=== PATIENT | female | born 2000 | race African-American/Black ===

== ENCOUNTER 2019-12-26 12:52 | Inpatient (IN) ==
[~2019-12-26 12:52] MED LIST: SODIUM CHLORIDE 0.9% 1000ML 1,000 ML IV ONE
--- NOTE | 2019-12-26 12:58 | Emergency Department Note ---
Impression & Plan DKA (diabetic ketoacidoses), Acute metabolic encephalopathy, Nausea & vomiting ED Provider Note NAME: LIZA PECK AGE: 19 SEX: F : 2000 ARRIVES VIA: Ambulance INFORMANT: Patient, ED PROVIDER(S): Michael Nugent DO CHIEF COMPLAINT: Palpitations HPI: The patient is a 19-year-old female who has a history of insulin-dependent diabetes who normally has an insulin pump who presented to the emergency department today because of tachycardia. The patient states she started feeling ill last evening. She started noticing having difficulty breathing and felt as though her heart rate was racing. Additional history was obtained from the prehospital personnel. They state when they arrived at our facility she was found to be in a narrow complex tachycardia at approximately 170 bpm. The patient was prepped to have adenosine however prior to administration the patient went to a sinus tachycardia of approximately 140 bpm. The patient noted her insulin pump was not working it was disconnected. The patient at this time is denying any chest pain. She is denying any nausea or vomiting. She is had no recent illnesses. She does not have any cough or fever. She states that she has never had symptoms like this in the past. She does have a history of pulmonary stenosis as well. ROS: See above HPI for pertinent positives & negatives. A total of 10 systems reviewed and were otherwise negative. PAST MEDICAL HISTORY: See Below PAST SURGICAL HISTORY: See Below FAMILY HISTORY: See Below SOCIAL HISTORY: See Below HOME MEDICATIONS: See Below ALLERGIES: See Below VITALS: See Below PHYSICAL EXAMINATION: GENERAL: Patient is listless and slow to respond to questioning. She does follow commands appropriately but slowly. EYES: The conjunctivae are clear. The pupils are round and reactive. EARS, NOSE, MOUTH AND THROAT: The nose is without any evidence of any deformity. Mucous membranes are dry. NECK: The neck is nontender and supple. RESPIRATORY: Shallow respirations were noted. There were no rales rhonchi or wheezing. There is significant tachypnea and conversational dyspnea. CARDIOVASCULAR: Tachycardic rate with regular rhythm was noted. There was no definite murmur appreciated however it is difficult given the patient's tachycardic rate. The patient was reevaluated when her heart rate was improved. She does have a systolic murmur to auscultation. GASTROINTESTINAL: The abdomen is soft. Abdomen is nontender. MUSCULOSKELETAL/EXTREMITIES: There is no evidence of gross deformity full range of motion is noted in the hips and shoulders. SKIN: There is no obvious evidence of any rash. Skin was warm and dry. NEUROLOGIC: Patient is oriented to person place and situation. Strength is symmetric. The patient's mental status does wax and wane. She started asking questions that were nonsensical. She does follow commands slowly. MEDICAL DECISION MAKING: The patient is a 19-year-old female who presented to the emergency department for an evaluation of tachycardia palpitations nausea and vomiting. The patient is a history of insulin-dependent diabetes. Is appears that her insulin pump was malfunctioning. Family history was also obtained by the patient's mother as well as the prehospital personnel. The patient was obtunded at times. Apparently she was having some nausea and vomiting over the last few days and thought it may be due to food poisoning. The patient's abdominal exam was not consistent with an acute surgical abdomen. The patient was found to be in severe DKA and also had an elevated white blood cell count. She was treated with IV fluids and IV insulin. She was also treated with IV antibiotics for empiric coverage. I discussed the patient's laboratory and radiographic studies with her and her mother. I also discussed her case with the on-call [facility] hospitalist group. They have agreed to evaluate the patient in the emergency department for further management and disposition. Triage Nursing notes reviewed. Prior medical records reviewed Vital Signs: reviewed and remarkable for tachycardia and tachypnea. Differential diagnosis: Infection, hypoglycemia, electrolyte abnormalities, overdose, toxicologic, cardiac sources, intracerebral event, neurologic, trauma, as well as other path ologies. ER treatment provided: See below Diagnostics interpreted by me: ECG: EKG was obtained in the emergency department. My interpretation is sinus tachycardia at 107 bpm. There was no ectopy. There was no acute ST segment abnormalities noted. Poor baseline was noted. There is no previous tracing for comparison. Cardiac Monitoring: An order was placed for continuous cardiac monitoring. The monitor shows a rate of 120 with sinus tachycardia rhythm. Laboratory studies: As stated above and show below. Imaging studies: See below Consultation(s): 1440: I discussed this case with Jenny. She is agreed to evaluate the patient in the emergency department for further management and disposition. 1500: I discussed the patient's condition with her mother, Beto, she does give some of the back story on the patient's acute condition. The patient was texting her over the last 24 hours. She was concerned that she may have gotten food poisoning from eating chicken. She was the only person who ate the food that was affected. She is been having nausea and vomiting. She was also concerned that her insulin pump was not working yesterday. The patient has had no previous surgical history. She does have a history of a stent that was placed because of a pulmonary stenosis. Her mother is unsure of the exact name of the procedure. ED COURSE: Procedures: Lumbar Puncture Indication: Altered mental status and elevated white blood cell count. Verbal consent was obtained after the risks and benefits were explained, including but not limited to headache, bleeding/clotting, scarring, infection, pain, and bone/joint/nerve damage. At this time, the risks of the procedure are less than the risks of NOT performing the procedure. A time out was taken and the correct patient and site identified. The patient was placed in the seated position and the back was prepped with betadine and draped in the standard fashion. The L3 intervertebral space was identified, anesthetized locally with 1% lidocaine without epinephrine, and the spinal needle was inserted through the skin with the bevel parallel to the dural fibers. The needle was carefully advanced into the lumbar cistern and 4 tubes of clear CSF was obtained. The stylet was replaced and the needle was removed. A bandaid was placed and the pat ient was placed in the supine position. The patient tolerated the procedure well and there were no complications. Critical Care: I have personally spent greater than 55 minutes of critical care time in the direct management of this patient. This includes bedside care, interpretation of diagnostic studies, and testing, discussion with consultants, patient, and family members, and other required patient management activities. This 55 minutes is in excess of all separately billable procedures. Past Med/Surg History Medical History (Updated 12/26/19 @ 17:43 by Jeb Ward DO) IDDM (insulin dependent diabetes mellitus) Pulmonary stenosis Social History Preferred Language: [place] Communication Ability: Unable Chiller Hand Required: No Beliefs That Will Affect Care: None Current Living Situation: Other Current Living Situation Comment: OFF CAMPUS APARTMENT WITH 2 ROOMMATES Feels Safe at Home: Yes Smoking Status: Never smoker Second Hand Exposure: No ; Hx Alcohol Use: No Hx Substance Use: No Allergies Allergies Allergy/AdvReac Type Severity Reaction Status Date / Time cefuroxime [From Ceftin] Allergy Intermediate Hives Unverified 12/26/19 16:47 pineapple Allergy Intermediate Lip and Unverified 12/26/19 16:47 Tongue Swelling Home Meds Home Medications Medication Instructions Recorded Confirmed aspirin 81 mg PO QAM 12/26/19 12/26/19 epinephrine 0.3 mg SUBCUT UD 12/26/19 12/26/19 insulin lispro [Humalog U-100 100 unit CONTINUOUS SUBCUTANEOUS 12/26/19 12/26/19 Insulin] INFUSION DAILY Results & Data (ED) Vital Signs Vital Signs - 24 hr 12/26/19 13:05 12/26/19 13:12 12/26/19 13:24 Temperature 36.5 C Temperature Source Oral Pulse Rate 108 H 106 H Pulse Rate [Apical] Pulse Rate from SpO2 Sensor 104 H Respiratory Rate 40 H 36 H Respiratory Effort / Characteristics Labored Short of Breath Respiratory Pattern Tachypnea Blood Pressure 126/83 128/80 Blood Pressure [Left Arm] Blood Pressure Mean 97 96 Blood Pressure Mean [Left Arm] Pulse Oximetry 100 100 100 Oxygen Delivery Method Room Air Nasal Cannula Oxygen Flow Rate 2 Sepsis Recent Fever Within 48 Hours No Sepsis New/Unexplained Change in Mental Status No Sepsis Action Taken by Nursing No Action Required 12/26/19 13:30 12/26/19 13:36 12/26/19 14:07 Temperature Temperature Source Pulse Rate 105 H 104 H Pulse Rate [Apical] 105 H Pulse Rate from SpO2 Sensor 105 H 104 H Respiratory Rate 34 H 38 H 37 H Respiratory Effort / Characteristics Respiratory Pattern Blood Pressure 102/82 124/82 Blood Pressure [Left Arm] 102/82 Blood Pressure Mean 87 96 Blood Pressure Mean [Left Arm] 88 Pulse Oximetry 100 100 100 Oxygen Delivery Method Nasal Cannula Nasal Cannula Oxygen Flow Rate 2 Sepsis Recent Fever Within 48 Hours Sepsis New/Unexplained Change in Mental Status Sepsis Action Taken by Nursing 12/26/19 14:15 12/26/19 14:38 12/26/19 14:45 Temperature Temperature Source Pulse Rate 102 H 102 H 105 H Pulse Rate [Apical] Pulse Rate from SpO2 Sensor 102 H 102 H 105 H Respiratory Rate 36 H 28 H 27 H Respiratory Effort / Characteristics Respiratory Pattern Blood Pressure 119/88 126/80 117/74 Blood Pressure [Left Arm] Blood Pressure Mean 92 110 80 Blood Pressure Mean [Left Arm] Pulse Oximetry 100 100 100 Oxygen Delivery Method Nasal Cannula Nasal Cannula Nasal Cannula Oxygen Flow Rate 2 2 2 Sepsis Recent Fever Within 48 Hours Sepsis New/Unexplained Change in Mental Status Sepsis Action Taken by Nursing 12/26/19 15:00 12/26/19 15:15 12/26/19 15:30 Temperature Temperature Source Pulse Rate 102 H 102 H 105 H Pulse Rate [Apical] Pulse Rate from SpO2 Sensor 102 H 102 H Respiratory Rate 29 H 28 H 30 H Respiratory Effort / Characteristics Respiratory Pattern Blood Pressure 143/88 H 125/81 122/79 Blood Pressure [Left Arm] Blood Pressure Mean 105 105 82 Blood Pressure Mean [Left Arm] Pulse Oximetry 100 100 Oxygen Delivery Method Nasal Cannula Nasal Cannula Oxygen Flow Rate 2 2 2 Sepsis Recent Fever Within 48 Hours Sepsis New/Unexplained Change in Mental Status Sepsis Action Taken by Detention Medications Current Medication List: was personally reviewed by me Laboratory Data Attestation: I reviewed the patient's lab results. Result diagrams: 12/26/19 13:48 12/26/19 15:58 Lab Results 12/26/19 12/26/19 12/26/19 Range/Units 13:30 13:30 13:48 WBC 43.19 H* (4.8-10.8) K/uL RBC 4.72 (4.2-5.4) M/uL Hgb 12.9 (12.0-16.0) g/dL POC Hgb (12.0-16.0) g/dl Hct 41.9 (37-47) % POC Hct (37-47) % MCV 88.8 (80-100) fL MCH 27.3 (25-34) pg MCHC 30.8 L (32-36) g/dL RDW Std Deviation 42.9 (36.4-46.3) fL RDW Coeff of Rylee 13.2 (11.5-14.5) % Plt Count 291 (130-400) K/uL MPV 10.2 (7.4-10.4) fL Immature Gran % (Auto) 4.9 % Neut % (Auto) 72.9 % Lymph % (Auto) 15.3 % Mchenry % (Auto) 6.4 % Eos % (Auto) 0.3 % Baso % (Auto) 0.2 % Immature Gran # (Auto) 2.13 H (0.00-0.02) K/uL Neut # (Auto) 31.50 H (1.4-6.5) K/uL Lymph # (Auto) 6.60 H (1.2-3.4) K/uL Mchenry # (Auto) 2.77 H (0.11-0.59) K/uL Eos # (Auto) 0.11 (0-0.5) K/uL Baso # (Auto) 0.08 (0-0.2) K/uL Platelet Estimate Normal (Normal) PT (9.0-12.0) Seconds INR (0.9-1.1) APTT (21.0-31.0) Seconds PTT Ratio VBG pH (7.36-7.41) VBG pCO2 (38-50) mmHg VBG pO2 mmHg VBG HCO3 mmol/L VBG O2 Saturation % VBG Base Excess mEq/L Barometric Pressure mm/Hg POC Sodium (135-144) mmol/L Sodium (136-145) mmol/L POC Potassium (3.3-5.0) mmol/L Potassium (3.5-5.1) mmol/L POC Chloride (101-112) mmol/L Chloride (98-107) mmol/L Carbon Dioxide (21-32) mmol/L POC Total CO2 (24-31) mmol/L Anion Gap (3-11) POC Anion Gap (16-25) mmol/L POC BUN (7-18) mg/dl BUN (7-18) mg/dl Creatinine (0.6-1.2) mg/dl POC Creatinine mg/dl Est Cr Clr Drug Dosing ml/min Est GFR ( Amer) Est GFR (Non-Af Amer) BUN/Creatinine Ratio (10-20) Glucose (70-99) mg/dl POC Glucose (70-99) mg/dl POC Glucose (other) (70-99) mg/dl Lactate (0.4-2.0) mmol/L Calcium (8.5-10.1) mg/dl POC Ioniz Calcium Felipe mmol/l Phosphorus (2.5-4.9) mg/dl Magnesium (1.8-2.4) mg/dl Total Bilirubin (0.2-1) mg/dl AST (15-37) U/L ALT (12-78) U/L Alkaline Phosphatase (45-117) U/L Troponin I (0-0.045) ng/ml Total Protein (6.4-8.2) gm/dl Albumin (3.4-5.0) gm/dl Globulin (2.5-4.0) gm/dl Albumin/Globulin Ratio (0.9-2) Beta-Hydroxybutyric Acd TSH (0.300-4.500) uIu/ml Free T4 (0.8-1.6) ng/dl HCG, Qual (Negative) Specimen Hemolysis Urine Color Yellow Urine Appearance Clear (Clear) Urine pH 5.0 (4.5-7.5) Ur Specific [place] [facility] 1.025 (1.000-1.030) Urine Protein 1+ H (Negative) Urine Glucose (UA) 3+ H (Negative) Urine Ketones 4+ H (Negative) Urine Blood 1+ H (Negative) Urine Nitrite Negative (Negative) Urine Bilirubin Negative (Negative) Urine Urobilinogen Negative (Negative) Ur Leukocyte Esterase Negative (Negative) Urine WBC (Auto) 1-5 (0-5) /hpf Urine RBC (Auto) 0-4 (0-4) /hpf U Hyaline Cast (Auto) 1-5 (0-5) /lpf U Epithel Cells (Auto) >30 H (0-5) /lpf Urine Bacteria (Auto) Negative (Negative) Granular Casts 1-5 H (0) /lpf Urine Yeast Not Reportable CSF Appearance CSF Color Xanthrochromic CSF WBC (0-5) /uL CSF RBC (0-) /uL CSF Cell Count Tube # CSF Chemistry Tube # CSF Glucose (40-70) mg/dl CSF Total Protein (15-45) mg/dl Urine Opiates Screen Neg (Neg) Ur Methadone, Qual Neg (Neg) Urine Barbiturates Neg (Neg) Ur Phencyclidine (PCP) Neg (Neg) U Amphetamin/Meth Scrn Neg (Neg) MDMA (Ecstasy) Screen Neg (Neg) U Benzodiazepines Scrn Neg (Neg) Ur Cocaine Metabolite Neg (Neg) U Marijuana (THC) Screen Neg (Neg) 12/26/19 12/26/19 12/26/19 Range/Units 13:48 13:48 13:48 WBC (4.8-10.8) K/uL RBC (4.2-5.4) M/uL Hgb (12.0-16.0) g/dL POC Hgb (12.0-16.0) g/dl Hct (37-47) % POC Hct (37-47) % MCV (80-100) fL MCH (25-34) pg MCHC (32-36) g/dL RDW Std Deviation (36.4-46.3) fL RDW Coeff of Rylee (11.5-14.5) % Plt Count (130-400) K/uL MPV (7.4-10.4) fL Immature Gran % (Auto) % Neut % (Auto) % Lymph % (Auto) % Mchenry % (Auto) % Eos % (Auto) % Baso % (Auto) % Immature Gran # (Auto) (0.00-0.02) K/uL Neut # (Auto) (1.4-6.5) K/uL Lymph # (Auto) (1.2-3.4) K/uL Mchenry # (Auto) (0.11-0.59) K/uL Eos # (Auto) (0-0.5) K/uL Baso # (Auto) (0-0.2) K/uL Platelet Estimate (Normal) PT 10.8 (9.0-12.0) Seconds INR 1.0 (0.9-1.1) APTT 30.0 (21.0-31.0) Seconds PTT Ratio 1.1 VBG pH (7.36-7.41) VBG pCO2 (38-50) mmHg VBG pO2 mmHg VBG HCO3 mmol/L VBG O2 Saturation % VBG Base Excess mEq/L Barometric Pressure mm/Hg POC Sodium (135-144) mmol/L Sodium 133 L (136-145) mmol/L POC Potassium (3.3-5.0) mmol/L Potassium 5.4 H (3.5-5.1) mmol/L POC Chloride (101-112) mmol/L Chloride 104 (98-107) mmol/L Carbon Dioxide < 5 L* (21-32) mmol/L POC Total CO2 (24-31) mmol/L Anion Gap 29.0 H (3-11) POC Anion Gap (16-25) mmol/L POC BUN (7-18) mg/dl BUN 30 H (7-18) mg/dl Creatinine 1.76 H (0.6-1.2) mg/dl POC Creatinine mg/dl Est Cr Clr Drug Dosing 41.0 ml/min Est GFR ( Amer) 47.4 Est GFR (Non-Af Amer) 40.9 BUN/Creatinine Ratio 16.9 (10-20) Glucose 790 H* (70-99) mg/dl POC Glucose (70-99) mg/dl POC Glucose (other) (70-99) mg/dl Lactate 2.7 H* (0.4-2.0) mmol/L Calcium 8.3 L (8.5-10.1) mg/dl POC Ioniz Calcium Felipe mmol/l Phosphorus (2.5-4.9) mg/dl Magnesium 2.8 H (1.8-2.4) mg/dl Total Bilirubin 0.3 (0.2-1) mg/dl AST 34 (15-37) U/L ALT 25 (12-78) U/L Alkaline Phosphatase 157 H (45-117) U/L Troponin I 0.022 (0-0.045) ng/ml Total Protein 7.1 (6.4-8.2) gm/dl Albumin 3.1 L (3.4-5.0) gm/dl Globulin 4.0 (2.5-4.0) gm/dl Albumin/Globulin Ratio 0.8 L (0.9-2) Beta-Hydroxybutyric Acd TNP TSH 0.192 L (0.300-4.500) uIu/ml Free T4 1.08 (0.8-1.6) ng/dl HCG, Qual (Negative) Specimen Hemolysis Urine Color Urine Appearance (Clear) Urine pH (4.5-7.5) Ur Specific [place] [facility] (1.000-1.030) Urine Protein (Negative) Urine Glucose (UA) (Negative) Urine Ketones (Negative) Urine Blood (Negative) Urine Nitrite (Negative) Urine Bilirubin (Negative) Urine Urobilinogen (Negative) Ur Leukocyte Esterase (Negative) Urine WBC (Auto) (0-5) /hpf Urine RBC (Auto) (0-4) /hpf U Hyaline Cast (Auto) (0-5) /lpf U Epithel Cells (Auto) (0-5) /lpf Urine Bacteria (Auto) (Negative) Granular Casts (0) /lpf Urine Yeast CSF Appearance CSF Color Xanthrochromic CSF WBC (0-5) /uL CSF RBC (0-) /uL CSF Cell Count Tube # CSF Chemistry Tube # CSF Glucose (40-70) mg/dl CSF Total Protein (15-45) mg/dl Urine Opiates Screen (Neg) Ur Methadone, Qual (Neg) Urine Barbiturates (Neg) Ur Phencyclidine (PCP) (Neg) U Amphetamin/Meth Scrn (Neg) MDMA (Ecstasy) Screen (Neg) U Benzodiazepines Scrn (Neg) Ur Cocaine Metabolite (Neg) U Marijuana (THC) Screen (Neg) 12/26/19 12/26/19 12/26/19 Range/Units 13:48 13:48 13:48 WBC (4.8-10.8) K/uL RBC (4.2-5.4) M/uL Hgb (12.0-16.0) g/dL POC Hgb (12.0-16.0) g/dl Hct (37-47) % POC Hct (37-47) % MCV (80-100) fL MCH (25-34) pg MCHC (32-36) g/dL RDW Std Deviation (36.4-46.3) fL RDW Coeff of Rylee (11.5-14.5) % Plt Count (130-400) K/uL MPV (7.4-10.4) fL Immature Gran % (Auto) % Neut % (Auto) % Lymph % (Auto) % Mchenry % (Auto) % Eos % (Auto) % Baso % (Auto) % Immature Gran # (Auto) (0.00-0.02) K/uL Neut # (Auto) (1.4-6.5) K/uL Lymph # (Auto) (1.2-3.4) K/uL Mchenry # (Auto) (0.11-0.59) K/uL Eos # (Auto) (0-0.5) K/uL Baso # (Auto) (0-0.2) K/uL Platelet Estimate (Normal) PT (9.0-12.0) Seconds INR (0.9-1.1) APTT (21.0-31.0) Seconds PTT Ratio VBG pH 6.88 L (7.36-7.41) VBG pCO2 34 L (38-50) mmHg VBG pO2 38 mmHg VBG HCO3 6 mmol/L VBG O2 Saturation 61.9 % VBG Base Excess -26.4 mEq/L Barometric Pressure 739.2 mm/Hg POC Sodium (135-144) mmol/L Sodium (136-145) mmol/L POC Potassium (3.3-5.0) mmol/L Potassium (3.5-5.1) mmol/L POC Chloride (101-112) mmol/L Chloride (98-107) mmol/L Carbon Dioxide (21-32) mmol/L POC Total CO2 (24-31) mmol/L Anion Gap (3-11) POC Anion Gap (16-25) mmol/L POC BUN (7-18) mg/dl BUN (7-18) mg/dl Creatinine (0.6-1.2) mg/dl POC Creatinine mg/dl Est Cr Clr Drug Dosing ml/min Est GFR ( Amer) Est GFR (Non-Af Amer) BUN/Creatinine Ratio (10-20) Glucose (70-99) mg/dl POC Glucose (70-99) mg/dl POC Glucose (other) (70-99) mg/dl Lactate (0.4-2.0) mmol/L Calcium (8.5-10.1) mg/dl POC Ioniz Calcium Felipe mmol/l Phosphorus 6.6 H (2.5-4.9) mg/dl Magnesium (1.8-2.4) mg/dl Total Bilirubin (0.2-1) mg/dl AST (15-37) U/L ALT (12-78) U/L Alkaline Phosphatase (45-117) U/L Troponin I (0-0.045) ng/ml Total Protein (6.4-8.2) gm/dl Albumin (3.4-5.0) gm/dl Globulin (2.5-4.0) gm/dl Albumin/Globulin Ratio (0.9-2) Beta-Hydroxybutyric Acd TSH (0.300-4.500) uIu/ml Free T4 (0.8-1.6) ng/dl HCG, Qual Negative (Negative) Specimen Hemolysis Urine Color Urine Appearance (Clear) Urine pH (4.5-7.5) Ur Specific [place] [facility] (1.000-1.030) Urine Protein (Negative) Urine Glucose (UA) (Negative) Urine Ketones (Negative) Urine Blood (Negative) Urine Nitrite (Negative) Urine Bilirubin (Negative) Urine Urobilinogen (Negative) Ur Leukocyte Esterase (Negative) Urine WBC (Auto) (0-5) /hpf Urine RBC (Auto) (0-4) /hpf U Hyaline Cast (Auto) (0-5) /lpf U Epithel Cells (Auto) (0-5) /lpf Urine Bacteria (Auto) (Negative) Granular Casts (0) /lpf Urine Yeast CSF Appearance CSF Color Xanthrochromic CSF WBC (0-5) /uL CSF RBC (0-) /uL CSF Cell Count Tube # CSF Chemistry Tube # CSF Glucose (40-70) mg/dl CSF Total Protein (15-45) mg/dl Urine Opiates Screen (Neg) Ur Methadone, Qual (Neg) Urine Barbiturates (Neg) Ur Phencyclidine (PCP) (Neg) U Amphetamin/Meth Scrn (Neg) MDMA (Ecstasy) Screen (Neg) U Benzodiazepines Scrn (Neg) Ur Cocaine Metabolite (Neg) U Marijuana (THC) Screen (Neg) 12/26/19 12/26/19 12/26/19 Range/Units 13:48 14:45 14:45 WBC (4.8-10.8) K/uL RBC (4.2-5.4) M/uL Hgb (12.0-16.0) g/dL POC Hgb 15.0 (12.0-16.0) g/dl Hct (37-47) % POC Hct 44 (37-47) % MCV (80-100) fL MCH (25-34) pg MCHC (32-36) g/dL RDW Std Deviation (36.4-46.3) fL RDW Coeff of Rylee (11.5-14.5) % Plt Count (130-400) K/uL MPV (7.4-10.4) fL Immature Gran % (Auto) % Neut % (Auto) % Lymph % (Auto) % Mchenry % (Auto) % Eos % (Auto) % Baso % (Auto) % Immature Gran # (Auto) (0.00-0.02) K/uL Neut # (Auto) (1.4-6.5) K/uL Lymph # (Auto) (1.2-3.4) K/uL Mchenry # (Auto) (0.11-0.59) K/uL Eos # (Auto) (0-0.5) K/uL Baso # (Auto) (0-0.2) K/uL Platelet Estimate (Normal) PT (9.0-12.0) Seconds INR (0.9-1.1) APTT (21.0-31.0) Seconds PTT Ratio VBG pH (7.36-7.41) VBG pCO2 (38-50) mmHg VBG pO2 mmHg VBG HCO3 mmol/L VBG O2 Saturation % VBG Base Excess mEq/L Barometric Pressure mm/Hg POC Sodium 133 L (135-144) mmol/L Sodium (136-145) mmol/L POC Potassium 5.5 H (3.3-5.0) mmol/L Potassium (3.5-5.1) mmol/L POC Chloride 110 (101-112) mmol/L Chloride (98-107) mmol/L Carbon Dioxide (21-32) mmol/L POC Total CO2 7 L* (24-31) mmol/L Anion Gap (3-11) POC Anion Gap 22.0 (16-25) mmol/L POC BUN 28 H (7-18) mg/dl BUN (7-18) mg/dl Creatinine (0.6-1.2) mg/dl POC Creatinine 1.1 mg/dl Est Cr Clr Drug Dosing ml/min Est GFR ( Amer) Est GFR (Non-Af Amer) BUN/Creatinine Ratio (10-20) Glucose (70-99) mg/dl POC Glucose (70-99) mg/dl POC Glucose (other) > 700 H* (70-99) mg/dl Lactate (0.4-2.0) mmol/L Calcium (8.5-10.1) mg/dl POC Ioniz Calcium Felipe 1.12 mmol/l Phosphorus (2.5-4.9) mg/dl Magnesium (1.8-2.4) mg/dl Total Bilirubin (0.2-1) mg/dl AST (15-37) U/L ALT (12-78) U/L Alkaline Phosphatase (45-117) U/L Troponin I (0-0.045) ng/ml Total Protein (6.4-8.2) gm/dl Albumin (3.4-5.0) gm/dl Globulin (2.5-4.0) gm/dl Albumin/Globulin Ratio (0.9-2) Beta-Hydroxybutyric Acd TSH (0.300-4.500) uIu/ml Free T4 (0.8-1.6) ng/dl HCG, Qual (Negative) Specimen Hemolysis Urine Color Urine Appearance (Clear) Urine pH (4.5-7.5) Ur Specific [facility] (1.000-1.030) Urine Protein (Negative) Urine Glucose (UA) (Negative) Urine Ketones (Negative) Urine Blood (Negative) Urine Nitrite (Negative) Urine Bilirubin (Negative) Urine Urobilinogen (Negative) Ur Leukocyte Esterase (Negative) Urine WBC (Auto) (0-5) /hpf Urine RBC (Auto) (0-4) /hpf U Hyaline Cast (Auto) (0-5) /lpf U Epithel Cells (Auto) (0-5) /lpf Urine Bacteria (Auto) (Negative) Granular Casts (0) /lpf Urine Yeast CSF Appearance Clear CSF Color Colorless Xanthrochromic No xanthochromia CSF WBC 0 (0-5) /uL CSF RBC 3 (0-) /uL CSF Cell Count Tube # 3 CSF Chemistry Tube # 1 CSF Glucose 496 H (40-70) mg/dl CSF Total Protein 49.9 H (15-45) mg/dl Urine Opiates Screen (Neg) Ur Methadone, Qual (Neg) Urine Barbiturates (Neg) Ur Phencyclidine (PCP) (Neg) U Amphetamin/Meth Scrn (Neg) MDMA (Ecstasy) Screen (Neg) U Benzodiazepines Scrn (Neg) Ur Cocaine Metabolite (Neg) U Marijuana (THC) Screen (Neg) 12/26/19 12/26/19 Range/Units 15:26 15:28 WBC (4.8-10.8) K/uL RBC (4.2-5.4) M/uL Hgb (12.0-16.0) g/dL POC Hgb (12.0-16.0) g/dl Hct (37-47) % POC Hct (37-47) % MCV (80-100) fL MCH (25-34) pg MCHC (32-36) g/dL RDW Std Deviation (36.4-46.3) fL RDW Coeff of Rylee (11.5-14.5) % Plt Count (130-400) K/uL MPV (7.4-10.4) fL Immature Gran % (Auto) % Neut % (Auto) % Lymph % (Auto) % Mchenry % (Auto) % Eos % (Auto) % Baso % (Auto) % Immature Gran # (Auto) (0.00-0.02) K/uL Neut # (Auto) (1.4-6.5) K/uL Lymph # (Auto) (1.2-3.4) K/uL Mchenry # (Auto) (0.11-0.59) K/uL Eos # (Auto) (0-0.5) K/uL Baso # (Auto) (0-0.2) K/uL Platelet Estimate (Normal) PT (9.0-12.0) Seconds INR (0.9-1.1) APTT (21.0-31.0) Seconds PTT Ratio VBG pH (7.36-7.41) VBG pCO2 (38-50) mmHg VBG pO2 mmHg VBG HCO3 mmol/L VBG O2 Saturation % VBG Base Excess mEq/L Barometric Pressure mm/Hg POC Sodium (135-144) mmol/L Sodium (136-145) mmol/L POC Potassium (3.3-5.0) mmol/L Potassium (3.5-5.1) mmol/L POC Chloride (101-112) mmol/L Chloride (98-107) mmol/L Carbon Dioxide (21-32) mmol/L POC Total CO2 (24-31) mmol/L Anion Gap (3-11) POC Anion Gap (16-25) mmol/L POC BUN (7-18) mg/dl BUN (7-18) mg/dl Creatinine (0.6-1.2) mg/dl POC Creatinine mg/dl Est Cr Clr Drug Dosing ml/min Est GFR ( Amer) Est GFR (Non-Af Amer) BUN/Creatinine Ratio (10-20) Glucose (70-99) mg/dl POC Glucose > 600 H* > 600 H* (70-99) mg/dl POC Glucose (other) (70-99) mg/dl Lactate (0.4-2.0) mmol/L Calcium (8.5-10.1) mg/dl POC Ioniz Calcium Felipe mmol/l Phosphorus (2.5-4.9) mg/dl Magnesium (1.8-2.4) mg/dl Total Bilirubin (0.2-1) mg/dl AST (15-37) U/L ALT (12-78) U/L Alkaline Phosphatase (45-117) U/L Troponin I (0-0.045) ng/ml Total Protein (6.4-8.2) gm/dl Albumin (3.4-5.0) gm/dl Globulin (2.5-4.0) gm/dl Albumin/Globulin Ratio (0.9-2) Beta-Hydroxybutyric Acd TSH (0.300-4.500) uIu/ml Free T4 (0.8-1.6) ng/dl HCG, Qual (Negative) Specimen Hemolysis Urine Color Urine Appearance (Clear) Urine pH (4.5-7.5) Ur Specific [place] (1.000-1.030) Urine Protein (Negative) Urine Glucose (UA) (Negative) Urine Ketones (Negative) Urine Blood (Negative) Urine Nitrite (Negative) Urine Bilirubin (Negative) Urine Urobilinogen (Negative) Ur Leukocyte Esterase (Negative) Urine WBC (Auto) (0-5) /hpf Urine RBC (Auto) (0-4) /hpf U Hyaline Cast (Auto) (0-5) /lpf U Epithel Cells (Auto) (0-5) /lpf Urine Bacteria (Auto) (Negative) Granular Casts (0) /lpf Urine Yeast CSF Appearance CSF Color Xanthrochromic CSF WBC (0-5) /uL CSF RBC (0-) /uL CSF Cell Count Tube # CSF Chemistry Tube # CSF Glucose (40-70) mg/dl CSF Total Protein (15-45) mg/dl Urine Opiates Screen (Neg) Ur Methadone, Qual (Neg) Urine Barbiturates (Neg) Ur Phencyclidine (PCP) (Neg) U Amphetamin/Meth Scrn (Neg) MDMA (Ecstasy) Screen (Neg) U Benzodiazepines Scrn (Neg) Ur Cocaine Metabolite (Neg) U Marijuana (THC) Screen (Neg) Administered Medications Insulin Human Regular 250 (units/ Sodium Chloride) 250 mls @ 3.2 mls/hr IV .Q24H [facility]; Protocol Stop: 01/25/20 13:59 Last Titration: 12/26/19 18:47 Dose: 3.2 units/hr, 3.2 mls/hr Documented by: [id number] Cosigned by: [id number] Admin: 12/26/19 17:51 Dose: 4 units/hr, 4 mls/hr Documented by: [id number] Cosigned by: [id number] Titration: 12/26/19 17:51 Dose: 5 units/hr, 5 mls/hr Documented by: [id number] Cosigned by: [id number] Admin: 12/26/19 14:15 Dose: 5 units/hr, 5 mls/hr Documented by: [id number] Cosigned by: [id number] Parenteral Electrolytes (Normosol-R) 1,000 mls @ 250 mls/hr IV .Q4H [facility] Stop: 01/25/20 15:39 Last Admin: 12/26/19 17:50 Dose: 250 mls/hr Documented by: [id number] Insulin Aspart (Novolog Flexpen) 0 units SC ACHS THADDEUS Stop: 01/25/20 16:29 Last Admin: 12/26/19 17:53 Dose: Not Given Documented by: [id number] Cosigned by: [id number] Discontinued Medications Benzocaine/Butamben/Tetracaine HCl (Cetacaine) Confirm Administered Dose 1 appln EXT .STK-MED ONE Stop: 12/26/19 17:02 Last Admin: 12/26/19 17:46 Dose: Not Given Documented by: [id number] Fentanyl Citrate (Fentanyl Citrate) 25 mcg IV NOW STA Stop: 12/26/19 13:57 Last Admin: 12/26/19 14:00 Dose: 25 mcg Documented by: [id number] Sodium Chloride (Nss 1000ml) 1,000 mls @ 999 mls/hr IV .Q1H1M ONE Stop: 12/26/19 13:52 Last Infusion: 12/26/19 14:19 Dose: 0 mls/hr Documented by: [id number] Admin: 12/26/19 13:19 Dose: 999 mls/hr Documented by: [id number] Sodium Chloride (Nss 1000ml) 1,000 mls @ 999 mls/hr IV .Q1H1M THADDEUS Stop: 12/26/19 14:00 Last Infusion: 12/26/19 14:19 Dose: 0 mls/hr Documented by: [id number] Admin: 12/26/19 13:19 Dose: 999 mls/hr Documented by: [id number] Sodium Chloride (Nss 1000ml) 1,000 mls @ 999 mls/hr IV .Q1H1M ONE Stop: 12/26/19 15:14 Last Infusion: 12/26/19 15:19 Dose: 0 mls/hr Documented by: [id number] Admin: 12/26/19 14:18 Dose: 999 mls/hr Documented by: [id number] Ceftriaxone Sodium (Rocephin) 2,000 mg in 70 mls @ 140 mls/hr IV NOW STA Stop: 12/26/19 14:53 Last Infusion: 12/26/19 17:54 Dose: 0 mls/hr Documented by: [id number] Admin: 12/26/19 15:20 Dose: 140 mls/hr Documented by: [id number] Potassium Chloride (K Dg / Wtr) 10 meq in 100 mls @ 100 mls/hr IV Q1H STA Stop: 12/26/19 16:39 Last Infusion: 12/26/19 17:54 Dose: 0 mls/hr Documented by: [id number] Admin: 12/26/19 16:13 Dose: 100 mls/hr Documented by: [id number] Insulin Aspart (Novolog Flexpen) 0 units SC ACHS THADDEUS Stop: 01/25/20 16:29 Last Admin: 12/26/19 17:52 Dose: Not Given Documented by: [id number] Cosigned by: [id number] Insulin Human Regular (Novolin R Bolus From Bag) 5 units IV ONE ONE Stop: 12/26/19 14:01 Last Admin: 12/26/19 14:16 Dose: 5 units Documented by: [id number] Cosigned by: [id number] Miscellaneous (Insulin Protocol Dka Goal Range) 1 ea N/A ONE ONE Stop: 12/26/19 13:54 Last Admin: 12/26/19 14:25 Dose: 1 ea Documented by: [id number] Ondansetron HCl (Zofran) 4 mg IV NOW STA Stop: 12/26/19 13:57 Last Admin: 12/26/19 14:00 Dose: 4 mg Documented by: [id number] Potassium Chloride (Anastasia Ciel Elix) 60 meq PO NOW STA Stop: 12/26/19 17:55 Last Admin: 12/26/19 18:45 Dose: 60 meq Documented by: [id number] Sodium Bicarbonate (Sodium Bicarbonate 8.4%) 50 meq IV NOW STA Stop: 12/26/19 15:41 Last Admin: 12/26/19 16:11 Dose: 50 meq Documented by: [id number] Imaging Data Radiologist's Impression: XR chest 1V portable CLINICAL HISTORY: 19 years-old Female presenting with weakness. TECHNIQUE: Portable upright AP view of the chest was obtained. COMPARISON: None. FINDINGS: Cardiomediastinal silhouette normal. Mild prominence of the right hilum. No focal opacity. No large effusion or pneumothorax. Osseous structures normal. Upper abdomen normal. IMPRESSION: 1. Mild prominence of the right hilum is likely vascular. No other evidence of acute cardiopulmonary disease. ACT 112: Negative or not required by law. Electronically signed by: Willy Herrera M.D. 12/26/2019 1:23 PM Dictated: 12/26/19 1322 Transcribed: 12/26/[address] DOSE: 844.62 mGy.cm HISTORY: Altered mental status. TECHNIQUE: Multiaxial CT images of the head were performed without the use of intravenous contrast. Automated exposure control was utilized for this study. A dose lowering technique was utilized adhering to the principles of ALARA. Comparison: None. Findings: Mild motion artifact. The paranasal sinuses and mastoid air cells are clear. The calvarium and skull base are intact. The ventricles and sulci are within normal limits. There is no mass, hematoma, midline shift, or acute infarct. Impression: No acute intracranial abnormality. ACT 112: Negative or not required by law. Electronically signed by: Peterson Masters M.D. 12/26/2019 2:39 PM Dictated: 12/26/19 1434 Transcribed: 12/26/19 1434 Blood Pressure Blood Pressure Findings: Normal blood pressure Discharge Plan Visit Data *Final* Discharge Date/Time: 12/26/19 17:13 Chief Complaint: Tachycardia ED Provider: Michael Nugent Discharge Problem: DKA (diabetic ketoacidoses), Acute metabolic encephalopathy, Nausea & vomiting Patient Disposition: Admitted As Inpatient Condition: Critical Discharge Instructions Interventions: ED Discharge Assessment Last Done: 12/26/19 17:13 Discharge Problem: DKA (diabetic ketoacidoses) Qualifiers: Diabetes mellitus type: type 1 Diabetes mellitus complication detail: without coma Qualified Code(s): E10.10 - Type 1 diabetes mellitus with ketoacidosis with out coma Nausea & vomiting Qualifiers: Vomiting type: unspecified Vomiting Intractability: non-intractable Qualified Code(s): R11.2 - Nausea with vomiting, unspecified
[2019-12-26] MEDS ORDERED: SODIUM CHLORIDE 0.9% 1000ML 1,000 ML IV SCH (13:00)
--- NOTE | 2019-12-26 13:24 | XRay Report ---
XR chest 1V portable CLINICAL HISTORY: 19 years-old Female presenting with weakness. TECHNIQUE: Portable upright AP view of the chest was obtained. COMPARISON: None. FINDINGS: Cardiomediastinal silhouette normal. Mild prominence of the right hilum. No focal opacity. No large e ffusion or pneumothorax. Osseous structures normal. Upper abdomen normal. IMPRESSION: 1. Mild prominence of the right hilum is likely vascular. No other evidence of acute cardiopulmonary disease. ACT 112: Negative or not required by law. Electronically signed by: Willy Herrera M.D. 12/26/2019 1:23 PM
[2019-12-26 13:44] LABS: Appearance Urine Clear (Clear); Bacteria Urine Automated Negative (Negative); Bilirubin Urine Negative (Negative); Blood Urine 1+ (Negative); Color Urine Yellow; Epithelial Cell Urine Auto >30 /lpf (0-5); Glucose Urine UA 3+ (Negative); Ketones Urine 4+ (Negative); Leukocyte Esterase Urine Negative (Negative); Nitrite Urine Negative (Negative); Protein Urine 1+ (Negative); RBC Urine Automated 0-4 /hpf (0-4); Specific Gravity Urine 1.025 (1.000-1.030); Urobilinogen Urine Negative (Negative)
[2019-12-26] MEDS ORDERED: ED DKA INSULIN DRIP ONE (13:53)
[2019-12-26] MEDS ORDERED: CARBOHYDRATES FOR HYPOGLYCEMIA PO PRN (13:53)
[2019-12-26] MEDS ORDERED: DEXTROSE 50% 50 ML SYRINGE IV PRN (13:53)
[2019-12-26] MEDS ORDERED: GLUCOSE 10 TABS/TUBE PO PRN (13:53)
[2019-12-26] MEDS ORDERED: GLUCAGON FOR INJ 1 MG VIAL SQ PRN (13:53)
[2019-12-26] MEDS ORDERED: GLUCOSE 40% GEL 15 GM TUBE PO PRN (13:53)
[2019-12-26] MEDS ORDERED: DKA GOAL RANGE 150-250 mg/dl ONE (13:53)
[2019-12-26] MEDS ORDERED: fentaNYL citrate 100 MCG/2 ML VIAL IV STA (13:56)
[2019-12-26] MEDS ORDERED: ONDANSETRON INJ 2 MG/ML 2 ML VIAL IV STA (13:56)
[2019-12-26] MEDS ORDERED: NovoLIN-R BOLUS FROM BAG IV ONE (14:00)
[2019-12-26 14:01] LABS: iSTAT Blood Urea Nitrogen 28 mg/dl (7-18); iSTAT Carbon Dioxide 7 mmol/L (24-31); iSTAT Chloride 110 mmol/L (101-112); iSTAT Creatinine 1.1 mg/dl; iSTAT Glucose > 700 mg/dl (70-99); iSTAT Hematocrit 44 % (37-47); iSTAT Ionized Calcium 1.12 mmol/l; iSTAT Potassium 5.5 mmol/L (3.3-5.0); iSTAT Sodium 133 mmol/L (135-144)
[2019-12-26 14:05] LABS: Base Excess VBG -26.4 mEq/L; Oxygen Saturation VBG 61.9 %; pH VBG 6.88 (7.36-7.41)
[2019-12-26 14:13] LABS: Hematocrit (blood only) 41.9 % (37-47); Hemoglobin 12.9 g/dL (12.0-16.0); Mean Corpuscular Hemoglobin 27.3 pg (25-34); Mean Corpuscular Hgb Conc 30.8 g/dL (32-36); Mean Corpuscular Volume 88.8 fL (80-100); RDW Coefficient of Variation 13.2 % (11.5-14.5); RDW Standard Deviation 42.9 fL (36.4-46.3); Red Blood Count 4.72 M/uL (4.2-5.4); White Blood Count 43.19 K/uL (4.8-10.8)
[2019-12-26] MEDS ORDERED: SODIUM CHLORIDE 0.9% 1000ML 1,000 ML IV ONE (14:14)
[2019-12-26 14:15] LABS: Partial Thromboplastin Ratio 1.1; Prothrombin Time 10.8 Seconds (9.0-12.0)
[2019-12-26] MEDS: INSULIN REGULAR 250 UNITS in SODIUM CHLORIDE 0.9% 247.5 ML IV SCH ×2 (14:15→17:51)
[2019-12-26 14:20] LABS: Mean Platelet Volume 10.2 fL (7.4-10.4); Platelet Count 291 K/uL (130-400)
[2019-12-26 14:21] LABS: Basophils # (auto) 0.08 K/uL (0-0.2); Basophils % (auto) 0.2 %; Eosinophils # (auto) 0.11 K/uL (0-0.5); Eosinophils % (auto) 0.3 %; Immature Granulocytes # (auto) 2.13 K/uL (0.00-0.02); Immature Granulocytes % (auto) 4.9 %; Lymphocytes % (auto) 15.3 %; Monocytes # (auto) 2.77 K/uL (0.11-0.59); Monocytes % (auto) 6.4 %; Neutrophils % (auto) 72.9 %; Platelet Estimate Normal (Normal)
[2019-12-26 14:23] LABS: Pregnancy Test, Serum Negative (Negative)
[2019-12-26] MEDS ORDERED: cefTRIAXone SODIUM 2,000 MG/70 ML BAG IV STA (14:24)
[2019-12-26 14:35] LABS: Alanine Aminotransferase 25 U/L (12-78); Albumin Globulin Ratio 0.8 (0.9-2); Albumin Level 3.1 gm/dl (3.4-5.0); Alkaline Phosphatase 157 U/L (45-117); Aspartate Aminotransferase 34 U/L (15-37); BUN Creatinine Ratio 16.9 (10-20); Bilirubin,Total 0.3 mg/dl (0.2-1); Blood Urea Nitrogen 30 mg/dl (7-18); Calcium 8.3 mg/dl (8.5-10.1); Carbon Dioxide < 5 mmol/L (21-32); Chloride 104 mmol/L (98-107); Est GFR (African American) 47.4; Est GFR (Non-African American) 40.9; Glucose 790 mg/dl (70-99); Magnesium 2.8 mg/dl (1.8-2.4); Potassium 5.4 mmol/L (3.5-5.1); Sodium 133 mmol/L (136-145); Thyroid Stimulating Hormone 0.192 uIu/ml (0.300-4.500); Total Protein 7.1 gm/dl (6.4-8.2); Troponin I 0.022 ng/ml (0-0.045)
--- NOTE | 2019-12-26 14:40 | CT Scan Report ---
HEAD CT NONCONTRAST CT DOSE: 844.62 mGy.cm HISTORY: Altered mental status. TECHNIQUE: Multiaxial CT images of the head were performed without the use of intravenous contrast. A utomated exposure control was utilized for this study. A dose lowering technique was utilized adheri ng to the principles of ALARA. Comparison: None. Findings: Mild motion artifact. The paranasal sinuses and mastoid air cells are clear. The calvarium and skull base are intact. The ventricles and sulci are within normal limits. There is no mass, hemat timbo, midline shift, or acute infarct. Impression: No acute intracranial abnormality. ACT 112: Negative or not required by law. Electronically signed by: Peterson Masters M.D. 12/26/2019 2:39 PM
[2019-12-26 14:59] LABS: T4 Free Thyroxine 1.08 ng/dl (0.8-1.6)
[2019-12-26 15:00] LABS: Amphetamines+Metham, Urine Neg (Neg); Barbiturates, Urine Neg (Neg); Benzodiazepine, Urine Neg (Neg); Cocaine, Urine Neg (Neg); MDMA (Ecstacy), Urine Neg (Neg); Methadone, Urine Neg (Neg); Opiate, Urine Neg (Neg); Phencyclidine, Urine Neg (Neg)
[2019-12-26 15:22] LABS: Appearance CSF Clear; CSF Count Tube # 3; CSF Xanthrochromic No xanthochromia; Color CSF Colorless; White Blood Cell CSF (B) 0 /uL (0-5)
[2019-12-26 15:23] LABS: Red Blood Cell CSF (A) 3 /uL (0-); Red Blood Cell CSF (B) 5 /uL (0-); White Blood Cell CSF (A) 0 /uL (0-5)
[2019-12-26 15:32] LABS: Total Protein CSF 49.9 mg/dl (15-45)
[2019-12-26] MEDS ORDERED: POTASSIUM CHLORIDE / WTR 10 MEQ/100 ML PLCT IV STA (15:40)
[2019-12-26] MEDS ORDERED: INSULIN REGULAR 250 UNITS in SODIUM CHLORIDE 0.9% 247.5 ML IV SCH (15:40)
[2019-12-26] MEDS ORDERED: SODIUM BICARB 8.4% INJ 50 MEQ/50 ML SYR IV STA (15:40)
--- NOTE | 2019-12-26 16:24 | History & Physical Report ---
Date of Service December 26, 2019 Assessment & Plan (1) DKA (diabetic ketoacidoses): 19 yo F PMHx DM1, pulmonary artery stenosis admitted for DKA and profound leukocytosis. DKA: - On admission BSG in 700s with gapped metabolic acidosis: pH 6.88, gap 29, bicarb 5. - Have started Normosol 250mL/hr, bicarb 50 meq IV now, K riders 20 meq now. - Insulin gtt started per DKA protocol, BSG q1h, continuous cardiac monitoring. - Infectious workup as below. - Repeat ABG 7.08 now, BMP/Mg/Phos/VBG q4h. - Critical care consult placed, Dr. Ward aware and has accepted patient for ICU. - NGT ordered, low threshold for intubation if patient becomes more unresponsive. Leukocytosis: - Pt with leukocytosis to 43.19; but is afebrile, SpO2 normal at this time, LP without signs of infection, UA negative for UTI, CXR without signs of pneumonia. - Unlikely to be infectious, possibly due to dehydration and stress response. - Lactate elevated on arrival to 2.7. - BCx x2 and UCx obtained, CSF cultures prior to one time dose of Rocephin for empiric coverage. - Will not continue antibiotics at this time. - Continue to follow daily CBC. SOFI: - Likely 2/2 dehydration in the setting of DKA. - Fluids as above. - Labwork as above. Acute metabolic encephalopathy: -Likely secondary to DKA -Treating DKA as above Abnormal TSH: -TSH is low could be secondary to acute illness -Recommend repeat thyroid function tests in 4 to 6 weeks when she is well Pulmonary stenosis: -Status post stenting of the pulmonary artery in childhood -Chest x-ray with mild prominence of the right hilum -Check echo Code Status: FULL CODE FEN/GI: NPO, NGT; Normosol @ 250cc/hr with bicarb and potassium repletion; labwork q4h as above DVT ppx: SCDs, Lovenox Dispo: ICU with care per Critical Care team; Hospitalist team will continue to follow (2) Acute metabolic encephalopathy: (3) Metabolic acidosis: (4) Leukocytosis: (5) SOFI (acute kidney injury): (6) Abnormal TSH: (7) Pulmonary stenosis: History of Present Illness Chief Complaint: DKA Primary Care Provider: [facility] 19 yo F PMHx significant for DM1 on insulin pump, pulmonary artery stenosis per mother who presents via EMS with tachycardia, history reported for some things by the patient on arrival, but predominantly by them and patient's mother over the phone. Patient on arrival able to [id number] some questions. When EMS arrived she appeared to be in narrow complex tachycardia briefly to the 170s but "broke" prior to receiving adenosine, returning to tachycardia to 140. Per ER staff report was that the patient was feeling unwell last evening, with some difficulty breathing and heart racing sensation, but no nausea or vomiting, no diarrhea, no recent illnesses, no cough or fevers. Per the patient's mother she called EMS to her daughter's residence after becoming informed that Conchis's insulin pump seemed to not be working correctly, and then after receiving some texts that were "off". Mother reports a history for the patient of pulmonary stenosis. No prior history of DKA. In ED pt had ABG showing pH 6.88, extremely low bicarb, BSG in 700s, gap 29, WBC count in 40s. CXR negative for infection, UA no nitrites no bacteria. CSF without bacteria or signs of infection. UCx, CSF Cx, and BCx x2 ordered, insulin gtt and 3L NSS given; hospitalist team consulted for admission. Allergies Allergy/AdvReac Type Severity Reaction Status Date / Time cefuroxime [From Ceftin] Allergy Intermediate Hives Unverified 12/26/19 16:47 pineapple Allergy Intermediate Lip and Unverified 12/26/19 16:47 Tongue Swelling Home Medications Home Medications Medication Instructions Recorded Confirmed Type aspirin 81 mg PO QAM 12/26/19 12/26/19 History epinephrine 0.3 mg SUBCUT UD 12/26/19 12/26/19 History insulin lispro [Humalog U-100 100 unit CONTINUOUS SUBCUTANEOUS 12/26/19 12/26/19 History Insulin] INFUSION DAILY Past Med/Surg History Medical History (Updated 12/26/19 @ 19:53 by Rosalba Jane MD) IDDM (insulin dependent diabetes mellitus) Pulmonary stenosis Family History (Updated 12/26/19 @ 19:47 by Rosalba Jane MD) Other Family history non-contributory Social History Preferred Language: Sudanese Communication Ability: Unable Education Department Registrar Required: No Beliefs That Will Affect Care: None Current Living Situation: Other Current Living Situation Comment: OFF CAMPUS APARTMENT WITH 2 ROOMMATES Feels Safe at Home: Yes Smoking Status: Never smoker Second Hand Exposure: No ; Hx Alcohol Use: No Hx Substance Use: No Review of Systems Review of Systems: Unobtainable due to reduced consciousness Physical Exam Constitutional: well developed and + ill appearing Eyes: PERRL, conjunctivae normal, anicteric sclerae ENMT: external ear and nose normal, oropharynx normal Neck: trachea midline, no thyromegaly Respiratory: Kussmaul breathing, lungs CTA b/l, tachypneic. No wheezing. Cardiovascular: Rate/Rhythm: regular rhythm and + tachycardic Heart Sounds: no murmur Gastrointestinal (Abdomen): normal bowel sounds, soft, nontender, no hepatosplenomegaly Musculoskeletal: LUE contracted up toward patient's face, but can move Skin: no rashes, warm and dry Neurologic: pt is lethargic, on asking to squeeze my fingers can feel light squeeze but otherwise does not follow commands, intermittently responsive to questions but with slow speech Psychiatric: Orientation: + not alert Results & Data Results & Data ([facility]) Vital Signs (Past 12 Hours) Vital Signs Temp Pulse Pulse Resp BP BP Pulse Ox 12/26/19 16:00 109 H 41 H 126/75 100 12/26/19 15:45 108 H 38 H 100 12/26/19 15:30 105 H 30 H 122/79 12/26/19 15:15 102 H 28 H 125/81 100 12/26/19 15:00 102 H 29 H 143/88 H 12/26/19 14:45 105 H 27 H 117/74 100 12/26/19 14:38 102 H 28 H 126/80 100 12/26/19 14:15 102 H 36 H 119/88 100 12/26/19 14:07 104 H 37 H 124/82 100 12/26/19 13:36 105 H 38 H 102/82 100 12/26/19 13:30 105 H 34 H 102/82 100 12/26/19 13:24 106 H 36 H 128/80 100 12/26/19 13:12 100 12/26/19 13:05 36.5 C 108 H 40 H 126/83 100 Laboratory Results Labs reviewed Diagnostic Findings CT head-no acute disease XR chest 1V portable CLINICAL HISTORY: 19 years-old Female presenting with weakness. TECHNIQUE: Portable upright AP view of the chest was obtained. COMPARISON: None. FINDINGS: Cardiomediastinal silhouette normal. Mild prominence of the right hilum. No focal opacity. No large effusion or pneumothorax. Osseous structures normal. Upper abdomen normal. IMPRESSION: 1. Mild prominence of the right hilum is likely vascular. No other evidence of acute cardiopulmonary disease. ECG Additional Comments: Sinus tachycardia, no ischemic changes, rate 106 Code Status & VTE Plan Code Status Full code VTE Prophylaxis Plan VTE Prophylaxis will be ordered: Yes Critical Care Time Critical Care Time: Yes Total Critical Care Time: 60 Supervising Physician Co-Signing Physician Notes I personally examined the patient and verified all anguiano points of history and exam, discussed case, and agree with decision making with Dr. Rodriguez with the following additions/exceptions: This patient is a 19-year-old female with a history of type 1 diabetes on insulin pump and pulmonary artery stenosis who presents to the ER after her mother called EMS as she was thought to be having an altered mental status. She was found of a blood sugar in the 700s with a significant metabolic acidosis from DKA. She also had profound leukocytosis and was very lethargic and with altered mental status in the ER. Work-up as noted above History and ROS reviewed as above Vitals reviewed Gen: Appears quite ill, thin, does open eyes and tries to follow some commands but does not follow all commands, barely responds to any of my questions, quite lethargic HEENT: Anicteric sclerae, PERRL CV: Regular rhythm, tachycardic, no mgr nl S1S2 Pulm: CTAB no wcr, with tachypnea, no use of accessory muscles Abd: +BS soft NT with mild distention no masses or hernias Ext: No edema, 2+ DP pulses Skin: No rashes, warm/dry Neuro: Lethargic, spontaneously moves her limbs bilaterally, but not following commands Labs reviewed, all images personally reviewed by me 19-year-old female with type 1 diabetes here with DKA and acute metabolic encephalopathy -She is critically ill at this time -I have discussed the case with the state game warden on-call and she will be admitted to the ICU, placed on insulin drip, continued volume resuscitation, electrolyte replacement, serial labs, 1 amp of bicarbonate to be given now as well as IV potassium riders -NG tube placed to be able to give her medications or feeds enterally if she remains altered -Follow CBC and cultures for CSF, blood, urine, however will remain off of any antibiotics at this time Resident Activity Tracking Resident Involvement: Resident Care Provided Care Provided: Adult Hospital Medicine (1) DKA (diabetic ketoacidoses) Diabetes mellitus complication detail: without coma Diabetes mellitus type: type 1 Qualified Code(s): E10.10 - Type 1 diabetes mellitus with ketoacidosis without coma
--- NOTE | 2019-12-26 16:28 | Electrocardiogram Report ---
Test Reason : Blood Pressure : / mmHG Vent. Rate : 107 BPM Atrial Rate : 107 BPM P-R Int : 142 ms QRS Dur : 088 ms QT Int : 346 ms P-R-T Axes : 068 078 054 degrees QTc Int : 461 ms Poor data quality, interpretation may be adversely affected Sinus tachycardia Otherwise normal ECG No previous ECGs available Confirmed by Kenji Chopra ([id number] on 12/26/2019 4:28:27 PM Referred By: ED Confirmed By:Luis Enrique Chopra
[2019-12-26] MEDS ORDERED: INSULIN ASPART 100 UNITS/ML 3 ML PEN SC SCH (16:30)
[2019-12-26 16:59] LABS: Base Excess ABG -23.9 mEq/L (-9-1.8); HCO3 ABG 5 mmol/L (19-24); Oxygen Saturation ABG 98.4 % (90-95); PCO2 ABG 17 mmHg (35-46); PO2 ABG 144 mmHg (80-95)
[2019-12-26 17:01] LABS: Allen Test POS (Pos)
[2019-12-26] MEDS ORDERED: BENZOCAIN/TETRACA/BUTAM SPRAY 200 APPLN/20 GM SPRY EXT ONE (17:01)
[2019-12-26 17:02] LABS: pH ABG 7.06 (7.35-7.45)
[2019-12-26] MEDS ORDERED: CANNULA ONE (17:02)
[2019-12-26 17:04] LABS: BUN Creatinine Ratio 18.5 (10-20); Blood Urea Nitrogen 25 mg/dl (7-18); Calcium 7.2 mg/dl (8.5-10.1); Carbon Dioxide < 5 mmol/L (21-32); Chloride 113 mmol/L (98-107); Est GFR (African American) 64.8; Est GFR (Non-African American) 55.9; Sodium 138 mmol/L (136-145)
[2019-12-26 17:10] LABS: Phosphorus 3.8 mg/dl (2.5-4.9)
--- NOTE | 2019-12-26 17:32 | Critical Care Consultation ---
Date of Consultation December 26, 2019 Assessment & Plan (1) DKA (diabetic ketoacidoses): Reason Critically Ill: 19-year-old female with diabetic ketoacidosis PLAN: Neuro: Acute metabolic encephalopathy -Anticipate improvement with treatment of DKA Resp: Tachypnea -Compensatory CV: Tachycardia -Secondary to volume depletion of DKA Fluids/Renal: Dehydration secondary to DKA -Normal saline at 250 mL's per hour Hospitalist reported hCG negative -We will obtain second for medical charting ID: Lumbar puncture completed in ED -Given initial antibiotics will hold additional antibiotics at this point GI/Nutrition: NG tube placed -To allow for enteral potassium supplementation Heme: Leukemoid reaction -Secondary to DKA DVT prophylaxis: SCDs Endocrine: Low TSH -Free T4 within normal limits -Will defer additional work-up to primary care physician. ICU DKA protocol Frequent labs -Dextrose containing solution pending Vascular access: Peripheral IVs Code Status: Full Disposition: ICU Present on Admission?: Yes (2) Abnormal TSH: (3) SOFI (acute kidney injury): (4) Leukocytosis: (5) Metabolic acidosis: (6) Acute metabolic encephalopathy: History of Present Illness Reason for Consultation: Acute encephalopathy and DKA with SOFI. Requesting Physician: Buck Attending Physician: Buck History of Present Illness History is obtained from Hospitalist secondary to acute encephalopathy. Patient is a type 1 diabetic who had sent strange texts to her mother which prompted her to check on her daughter. She was found to be largely unresponsive. She was sent to [facility] [place] ED for evaluation and management. She was found to be in DKA, presumptively from an insulin pump malfunction. She has an elevated white count, but is afebrile, saturating well, no indication of systemic infection with blood cultures and urine cultures pending. During my evaluation the patient is mildly more responsive answering very simple questions and following simple commands. Allergies Allergy/AdvReac Type Severity Reaction Status Date / Time cefuroxime [From Ceftin] Allergy Intermediate Hives Unverified 12/26/19 16:47 pineapple Allergy Intermediate Lip and Unverified 12/26/19 16:47 Tongue Swelling Home Medications Home Medications Medication Instructions Recorded Confirmed Type aspirin 81 mg PO QAM 12/26/19 12/26/19 History epinephrine 0.3 mg SUBCUT UD 12/26/19 12/26/19 History insulin lispro [Humalog U-100 100 unit CONTINUOUS SUBCUTANEOUS 12/26/19 12/26/19 History Insulin] INFUSION DAILY Patient History Medical History (Updated 12/26/19 @ 17:43 by Jeb Ward DO) IDDM (insulin dependent diabetes mellitus) Pulmonary stenosis Social History Feels Safe at Home: Yes Smoking Status: Never smoker Review of Systems Review of Systems: Unobtainable due to reduced consciousness Physical Exam Physical Exam: General: Arouses to verbal stimuli, Skin: Warm, dry, Head: Atraumatic, no evidence of meningismus Ears, nose, mouth and throat: airway patent, dry mucous membranes Cardiovascular: Normal peripheral perfusion Respiratory: no respiratory distress, tachypnea Gastrointestinal: Non distended Musculoskeletal: No deformity Results & Data Results & Data ([facility]) Vital Signs (Past 12 Hours) Vital Signs Temp Pulse Pulse Resp BP BP Pulse Ox 12/26/19 17:01 123 H 41 H 125/78 100 12/26/19 17:00 123 H 34 H 99 12/26/19 16:45 119 H 36 H 126/78 100 12/26/19 16:30 119 H 29 H 117/83 12/26/19 16:15 119 H 40 H 12/26/19 16:00 109 H 41 H 126/75 100 12/26/19 15:45 108 H 38 H 100 12/26/19 15:30 105 H 30 H 122/79 12/26/19 15:15 102 H 28 H 125/81 100 12/26/19 15:00 102 H 29 H 143/88 H 100 12/26/19 14:45 105 H 27 H 117/74 100 12/26/19 14:38 102 H 28 H 126/80 100 12/26/19 14:15 102 H 36 H 119/88 100 12/26/19 14:07 104 H 37 H 124/82 100 12/26/19 13:36 105 H 38 H 102/82 100 12/26/19 13:30 105 H 34 H 102/82 12/26/19 13:24 106 H 36 H 128/80 100 12/26/19 13:12 100 12/26/19 13:05 36.5 C 108 H 40 H 126/83 100 Laboratory Results 12/26/19 12/26/19 12/26/19 Range/Units 16:46 16:08 15:58 WBC (4.8-10.8) K/uL RBC (4.2-5.4) M/uL Hgb (12.0-16.0) g/dL POC Hgb (12.0-16.0) g/dl Hct (37-47) % POC Hct (37-47) % MCV (80-100) fL MCH (25-34) pg MCHC (32-36) g/dL RDW Std Deviation (36.4-46.3) fL RDW Coeff of Rylee (11.5-14.5) % Plt Count (130-400) K/uL MPV (7.4-10.4) fL Immature Gran % (Auto) % Neut % (Auto) % Lymph % (Auto) % Sibley % (Auto) % Eos % (Auto) % Baso % (Auto) % Immature Gran # (Auto) (0.00-0.02) K/uL Neut # (Auto) (1.4-6.5) K/uL Lymph # (Auto) (1.2-3.4) K/uL Sibley # (Auto) (0.11-0.59) K/uL Eos # (Auto) (0-0.5) K/uL Baso # (Auto) (0-0.2) K/uL Platelet Estimate (Normal) PT (9.0-12.0) Seconds INR (0.9-1.1) APTT (21.0-31.0) Seconds PTT Ratio ABG pH 7.06 L* (7.35-7.45) ABG pCO2 17 L (35-46) mmHg ABG pO2 144 H (80-95) mmHg ABG HCO3 5 L (19-24) mmol/L ABG O2 Saturation 98.4 H (90-95) % ABG Base Excess -23.9 L (-9-1.8) mEq/L Tae Test POS (Pos) VBG pH Cancelled (7.36-7.41) VBG pCO2 (38-50) mmHg VBG pO2 mmHg VBG HCO3 mmol/L VBG O2 Saturation % VBG Base Excess mEq/L Barometric Pressure 738.2 mm/Hg Oxygen Given 2L O2 POC Sodium (135-144) mmol/L Sodium 138 (136-145) mmol/L POC Potassium (3.3-5.0) mmol/L Potassium (3.5-5.1) mmol/L POC Chloride (101-112) mmol/L Chloride 113 H (98-107) mmol/L Carbon Dioxide < 5 L* (21-32) mmol/L POC Total CO2 (24-31) mmol/L Anion Gap 22.0 H (3-11) POC Anion Gap (16-25) mmol/L POC BUN (7-18) mg/dl BUN 25 H (7-18) mg/dl Creatinine 1.36 H D (0.6-1.2) mg/dl POC Creatinine mg/dl Est Cr Clr Drug Dosing 53.0 ml/min Est GFR ( Amer) 64.8 Est GFR (Non-Af Amer) 55.9 BUN/Creatinine Ratio 18.5 (10-20) Glucose Pending (70-99) mg/dl POC Glucose (70-99) mg/dl POC Glucose (other) (70-99) mg/dl Estimat Average Glucose Hemoglobin A1c Lactate (0.4-2.0) mmol/L Calcium 7.2 L (8.5-10.1) mg/dl POC Ioniz Calcium Felipe mmol/l Phosphorus 3.8 D (2.5-4.9) mg/dl Magnesium (1.8-2.4) mg/dl Total Bilirubin (0.2-1) mg/dl AST (15-37) U/L ALT (12-78) U/L Alkaline Phosphatase (45-117) U/L Troponin I (0-0.045) ng/ml Total Protein (6.4-8.2) gm/dl Albumin (3.4-5.0) gm/dl Globulin (2.5-4.0) gm/dl Albumin/Globulin Ratio (0.9-2) Beta-Hydroxybutyric Acd TSH (0.300-4.500) uIu/ml Free T4 (0.8-1.6) ng/dl HCG, Qual (Negative) Specimen Hemolysis Urine Color Urine Appearance (Clear) Urine pH (4.5-7.5) Ur Specific Donna (1.000-1.030) Urine Protein (Negative) Urine Glucose (UA) (Negative) Urine Ketones (Negative) Urine Blood (Negative) Urine Nitrite (Negative) Urine Bilirubin (Negative) Urine Urobilinogen (Negative) Ur Leukocyte Esterase (Negative) Urine WBC (Auto) (0-5) /hpf Urine RBC (Auto) (0-4) /hpf U Hyaline Cast (Auto) (0-5) /lpf U Epithel Cells (Auto) (0-5) /lpf Urine Bacteria (Auto) (Negative) Granular Casts (0) /lpf Urine Yeast CSF Appearance CSF Color Xanthrochromic CSF WBC (0-5) /uL CSF RBC (0-) /uL CSF Cell Count Tube # CSF Chemistry Tube # CSF Glucose (40-70) mg/dl CSF Total Protein (15-45) mg/dl Urine Opiates Screen (Neg) Ur Methadone, Qual (Neg) Urine Barbiturates (Neg) Ur Phencyclidine (PCP) (Neg) U Amphetamin/Meth Scrn (Neg) MDMA (Ecstasy) Screen (Neg) U Benzodiazepines Scrn (Neg) Ur Cocaine Metabolite (Neg) U Marijuana (THC) Screen (Neg) 12/26/19 12/26/19 12/26/19 Range/Units 15:28 15:26 14:45 WBC (4.8-10.8) K/uL RBC (4.2-5.4) M/uL Hgb (12.0-16.0) g/dL POC Hgb (12.0-16.0) g/dl Hct (37-47) % POC Hct (37-47) % MCV (80-100) fL MCH (25-34) pg MCHC (32-36) g/dL RDW Std Deviation (36.4-46.3) fL RDW Coeff of Rylee (11.5-14.5) % Plt Count (130-400) K/uL MPV (7.4-10.4) fL Immature Gran % (Auto) % Neut % (Auto) % Lymph % (Auto) % Sibley % (Auto) % Eos % (Auto) % Baso % (Auto) % Immature Gran # (Auto) (0.00-0.02) K/uL Neut # (Auto) (1.4-6.5) K/uL Lymph # (Auto) (1.2-3.4) K/uL Sibley # (Auto) (0.11-0.59) K/uL Eos # (Auto) (0-0.5) K/uL Baso # (Auto) (0-0.2) K/uL Platelet Estimate (Normal) PT (9.0-12.0) Seconds INR (0.9-1.1) APTT (21.0-31.0) Seconds PTT Ratio ABG pH (7.35-7.45) ABG pCO2 (35-46) mmHg ABG pO2 (80-95) mmHg ABG HCO3 (19-24) mmol/L ABG O2 Saturation (90-95) % ABG Base Excess (-9-1.8) mEq/L Tae Test (Pos) VBG pH (7.36-7.41) VBG pCO2 (38-50) mmHg VBG pO2 mmHg VBG HCO3 mmol/L VBG O2 Saturation % VBG Base Excess mEq/L Barometric Pressure mm/Hg Oxygen Given POC Sodium (135-144) mmol/L Sodium (136-145) mmol/L POC Potassium (3.3-5.0) mmol/L Potassium (3.5-5.1) mmol/L POC Chloride (101-112) mmol/L Chloride (98-107) mmol/L Carbon Dioxide (21-32) mmol/L POC Total CO2 (24-31) mmol/L Anion Gap (3-11) POC Anion Gap (16-25) mmol/L POC BUN (7-18) mg/dl BUN (7-18) mg/dl Creatinine (0.6-1.2) mg/dl POC Creatinine mg/dl Est Cr Clr Drug Dosing ml/min Est GFR ( Amer) Est GFR (Non-Af Amer) BUN/Creatinine Ratio (10-20) Glucose (70-99) mg/dl POC Glucose > 600 H* > 600 H* (70-99) mg/dl POC Glucose (other) (70-99) mg/dl Estimat Average Glucose Hemoglobin A1c Lactate (0.4-2.0) mmol/L Calcium (8.5-10.1) mg/dl POC Ioniz Calcium Felipe mmol/l Phosphorus (2.5-4.9) mg/dl Magnesium (1.8-2.4) mg/dl Total Bilirubin (0.2-1) mg/dl AST (15-37) U/L ALT (12-78) U/L Alkaline Phosphatase (45-117) U/L Troponin I (0-0.045) ng/ml Total Protein (6.4-8.2) gm/dl Albumin (3.4-5.0) gm/dl Globulin (2.5-4.0) gm/dl Albumin/Globulin Ratio (0.9-2) Beta-Hydroxybutyric Acd TSH (0.300-4.500) uIu/ml Free T4 (0.8-1.6) ng/dl HCG, Qual (Negative) Specimen Hemolysis Urine Color Urine Appearance (Clear) Urine pH (4.5-7.5) Ur Specific Donna (1.000-1.030) Urine Protein (Negative) Urine Glucose (UA) (Negative) Urine Ketones (Negative) Urine Blood (Negative) Urine Nitrite (Negative) Urine Bilirubin (Negative) Urine Urobilinogen (Negative) Ur Leukocyte Esterase (Negative) Urine WBC (Auto) (0-5) /hpf Urine RBC (Auto) (0-4) /hpf U Hyaline Cast (Auto) (0-5) /lpf U Epithel Cells (Auto) (0-5) /lpf Urine Bacteria (Auto) (Negative) Granular Casts (0) /lpf Urine Yeast CSF Appearance CSF Color Xanthrochromic CSF WBC (0-5) /uL CSF RBC (0-) /uL CSF Cell Count Tube # CSF Chemistry Tube # 1 CSF Glucose 496 H (40-70) mg/dl CSF Total Protein 49.9 H (15-45) mg/dl Urine Opiates Screen (Neg) Ur Methadone, Qual (Neg) Urine Barbiturates (Neg) Ur Phencyclidine (PCP) (Neg) U Amphetamin/Meth Scrn (Neg) MDMA (Ecstasy) Screen (Neg) U Benzodiazepines Scrn (Neg) Ur Cocaine Metabolite (Neg) U Marijuana (THC) Screen (Neg) 12/26/19 12/26/19 12/26/19 Range/Units 14:45 13:48 13:48 WBC (4.8-10.8) K/uL RBC (4.2-5.4) M/uL Hgb (12.0-16.0) g/dL POC Hgb 15.0 (12.0-16.0) g/dl Hct (37-47) % POC Hct 44 (37-47) % MCV (80-100) fL MCH (25-34) pg MCHC (32-36) g/dL RDW Std Deviation (36.4-46.3) fL RDW Coeff of Rylee (11.5-14.5) % Plt Count (130-400) K/uL MPV (7.4-10.4) fL Immature Gran % (Auto) % Neut % (Auto) % Lymph % (Auto) % Sibley % (Auto) % Eos % (Auto) % Baso % (Auto) % Immature Gran # (Auto) (0.00-0.02) K/uL Neut # (Auto) (1.4-6.5) K/uL Lymph # (Auto) (1.2-3.4) K/uL Sibley # (Auto) (0.11-0.59) K/uL Eos # (Auto) (0-0.5) K/uL Baso # (Auto) (0-0.2) K/uL Platelet Estimate (Normal) PT (9.0-12.0) Seconds INR (0.9-1.1) APTT (21.0-31.0) Seconds PTT Ratio ABG pH (7.35-7.45) ABG pCO2 (35-46) mmHg ABG pO2 (80-95) mmHg ABG HCO3 (19-24) mmol/L ABG O2 Saturation (90-95) % ABG Base Excess (-9-1.8) mEq/L Tae Test (Pos) VBG pH (7.36-7.41) VBG pCO2 (38-50) mmHg VBG pO2 mmHg VBG HCO3 mmol/L VBG O2 Saturation % VBG Base Excess mEq/L Barometric Pressure mm/Hg Oxygen Given POC Sodium 133 L (135-144) mmol/L Sodium (136-145) mmol/L POC Potassium 5.5 H (3.3-5.0) mmol/L Potassium (3.5-5.1) mmol/L POC Chloride 110 (101-112) mmol/L Chloride (98-107) mmol/L Carbon Dioxide (21-32) mmol/L POC Total CO2 7 L* (24-31) mmol/L Anion Gap (3-11) POC Anion Gap 22.0 (16-25) mmol/L POC BUN 28 H (7-18) mg/dl BUN (7-18) mg/dl Creatinine (0.6-1.2) mg/dl POC Creatinine 1.1 mg/dl Est Cr Clr Drug Dosing ml/min Est GFR ( Amer) Est GFR (Non-Af Amer) BUN/Creatinine Ratio (10-20) Glucose (70-99) mg/dl POC Glucose (70-99) mg/dl POC Glucose (other) > 700 H* (70-99) mg/dl Estimat Average Glucose Pending Hemoglobin A1c Pending Lactate (0.4-2.0) mmol/L Calcium (8.5-10.1) mg/dl POC Ioniz Calcium Felipe 1.12 mmol/l Phosphorus (2.5-4.9) mg/dl Magnesium (1.8-2.4) mg/dl Total Bilirubin (0.2-1) mg/dl AST (15-37) U/L ALT (12-78) U/L Alkaline Phosphatase (45-117) U/L Troponin I (0-0.045) ng/ml Total Protein (6.4-8.2) gm/dl Albumin (3.4-5.0) gm/dl Globulin (2.5-4.0) gm/dl Albumin/Globulin Ratio (0.9-2) Beta-Hydroxybutyric Acd TSH (0.300-4.500) uIu/ml Free T4 (0.8-1.6) ng/dl HCG, Qual (Negative) Specimen Hemolysis Urine Color Urine Appearance (Clear) Urine pH (4.5-7.5) Ur Specific Donna (1.000-1.030) Urine Protein (Negative) Urine Glucose (UA) (Negative) Urine Ketones (Negative) Urine Blood (Negative) Urine Nitrite (Negative) Urine Bilirubin (Negative) Urine Urobilinogen (Negative) Ur Leukocyte Esterase (Negative) Urine WBC (Auto) (0-5) /hpf Urine RBC (Auto) (0-4) /hpf U Hyaline Cast (Auto) (0-5) /lpf U Epithel Cells (Auto) (0-5) /lpf Urine Bacteria (Auto) (Negative) Granular Casts (0) /lpf Urine Yeast CSF Appearance Clear CSF Color Colorless Xanthrochromic No xanthochromia CSF WBC 0 (0-5) /uL CSF RBC 3 (0-) /uL CSF Cell Count Tube # 3 CSF Chemistry Tube # CSF Glucose (40-70) mg/dl CSF Total Protein (15-45) mg/dl Urine Opiates Screen (Neg) Ur Methadone, Qual (Neg) Urine Barbiturates (Neg) Ur Phencyclidine (PCP) (Neg) U Amphetamin/Meth Scrn (Neg) MDMA (Ecstasy) Screen (Neg) U Benzodiazepines Scrn (Neg) Ur Cocaine Metabolite (Neg) U Marijuana (THC) Screen (Neg) 12/26/19 12/26/19 12/26/19 Range/Units 13:48 13:48 13:48 WBC (4.8-10.8) K/uL RBC (4.2-5.4) M/uL Hgb (12.0-16.0) g/dL POC Hgb (12.0-16.0) g/dl Hct (37-47) % POC Hct (37-47) % MCV (80-100) fL MCH (25-34) pg MCHC (32-36) g/dL RDW Std Deviation (36.4-46.3) fL RDW Coeff of Rylee (11.5-14.5) % Plt Count (130-400) K/uL MPV (7.4-10.4) fL Immature Gran % (Auto) % Neut % (Auto) % Lymph % (Auto) % Sibley % (Auto) % Eos % (Auto) % Baso % (Auto) % Immature Gran # (Auto) (0.00-0.02) K/uL Neut # (Auto) (1.4-6.5) K/uL Lymph # (Auto) (1.2-3.4) K/uL Sibley # (Auto) (0.11-0.59) K/uL Eos # (Auto) (0-0.5) K/uL Baso # (Auto) (0-0.2) K/uL Platelet Estimate (Normal) PT (9.0-12.0) Seconds INR (0.9-1.1) APTT (21.0-31.0) Seconds PTT Ratio ABG pH (7.35-7.45) ABG pCO2 (35-46) mmHg ABG pO2 (80-95) mmHg ABG HCO3 (19-24) mmol/L ABG O2 Saturation (90-95) % ABG Base Excess (-9-1.8) mEq/L Tae Test (Pos) VBG pH 6.88 L (7.36-7.41) VBG pCO2 34 L (38-50) mmHg VBG pO2 38 mmHg VBG HCO3 6 mmol/L VBG O2 Saturation 61.9 % VBG Base Excess -26.4 mEq/L Barometric Pressure 739.2 mm/Hg Oxygen Given POC Sodium (135-144) mmol/L Sodium (136-145) mmol/L POC Potassium (3.3-5.0) mmol/L Potassium (3.5-5.1) mmol/L POC Chloride (101-112) mmol/L Chloride (98-107) mmol/L Carbon Dioxide (21-32) mmol/L POC Total CO2 (24-31) mmol/L Anion Gap (3-11) POC Anion Gap (16-25) mmol/L POC BUN (7-18) mg/dl BUN (7-18) mg/dl Creatinine (0.6-1.2) mg/dl POC Creatinine mg/dl Est Cr Clr Drug Dosing ml/min Est GFR ( Amer) Est GFR (Non-Af Amer) BUN/Creatinine Ratio (10-20) Glucose (70-99) mg/dl POC Glucose (70-99) mg/dl POC Glucose (other) (70-99) mg/dl Estimat Average Glucose Hemoglobin A1c Lactate (0.4-2.0) mmol/L Calcium (8.5-10.1) mg/dl POC Ioniz Calcium Felipe mmol/l Phosphorus 6.6 H (2.5-4.9) mg/dl Magnesium (1.8-2.4) mg/dl Total Bilirubin (0.2-1) mg/dl AST (15-37) U/L ALT (12-78) U/L Alkaline Phosphatase (45-117) U/L Troponin I (0-0.045) ng/ml Total Protein (6.4-8.2) gm/dl Albumin (3.4-5.0) gm/dl Globulin (2.5-4.0) gm/dl Albumin/Globulin Ratio (0.9-2) Beta-Hydroxybutyric Acd TSH (0.300-4.500) uIu/ml Free T4 (0.8-1.6) ng/dl HCG, Qual Negative (Negative) Specimen Hemolysis Urine Color Urine Appearance (Clear) Urine pH (4.5-7.5) Ur Specific Donna (1.000-1.030) Urine Protein (Negative) Urine Glucose (UA) (Negative) Urine Ketones (Negative) Urine Blood (Negative) Urine Nitrite (Negative) Urine Bilirubin (Negative) Urine Urobilinogen (Negative) Ur Leukocyte Esterase (Negative) Urine WBC (Auto) (0-5) /hpf Urine RBC (Auto) (0-4) /hpf U Hyaline Cast (Auto) (0-5) /lpf U Epithel Cells (Auto) (0-5) /lpf Urine Bacteria (Auto) (Negative) Granular Casts (0) /lpf Urine Yeast CSF Appearance CSF Color Xanthrochromic CSF WBC (0-5) /uL CSF RBC (0-) /uL CSF Cell Count Tube # CSF Chemistry Tube # CSF Glucose (40-70) mg/dl CSF Total Protein (15-45) mg/dl Urine Opiates Screen (Neg) Ur Methadone, Qual (Neg) Urine Barbiturates (Neg) Ur Phencyclidine (PCP) (Neg) U Amphetamin/Meth Scrn (Neg) MDMA (Ecstasy) Screen (Neg) U Benzodiazepines Scrn (Neg) Ur Cocaine Metabolite (Neg) U Marijuana (THC) Screen (Neg) 12/26/19 12/26/19 12/26/19 Range/Units 13:48 13:48 13:48 WBC (4.8-10.8) K/uL RBC (4.2-5.4) M/uL Hgb (12.0-16.0) g/dL POC Hgb (12.0-16.0) g/dl Hct (37-47) % POC Hct (37-47) % MCV (80-100) fL MCH (25-34) pg MCHC (32-36) g/dL RDW Std Deviation (36.4-46.3) fL RDW Coeff of Rylee (11.5-14.5) % Plt Count (130-400) K/uL MPV (7.4-10.4) fL Immature Gran % (Auto) % Neut % (Auto) % Lymph % (Auto) % Sibley % (Auto) % Eos % (Auto) % Baso % (Auto) % Immature Gran # (Auto) (0.00-0.02) K/uL Neut # (Auto) (1.4-6.5) K/uL Lymph # (Auto) (1.2-3.4) K/uL Sibley # (Auto) (0.11-0.59) K/uL Eos # (Auto) (0-0.5) K/uL Baso # (Auto) (0-0.2) K/uL Platelet Estimate (Normal) PT 10.8 (9.0-12.0) Seconds INR 1.0 (0.9-1.1) APTT 30.0 (21.0-31.0) Seconds PTT Ratio 1.1 ABG pH (7.35-7.45) ABG pCO2 (35-46) mmHg ABG pO2 (80-95) mmHg ABG HCO3 (19-24) mmol/L ABG O2 Saturation (90-95) % ABG Base Excess (-9-1.8) mEq/L Tae Test (Pos) VBG pH (7.36-7.41) VBG pCO2 (38-50) mmHg VBG pO2 mmHg VBG HCO3 mmol/L VBG O2 Saturation % VBG Base Excess mEq/L Barometric Pressure mm/Hg Oxygen Given POC Sodium (135-144) mmol/L Sodium 133 L (136-145) mmol/L POC Potassium (3.3-5.0) mmol/L Potassium 5.4 H (3.5-5.1) mmol/L POC Chloride (101-112) mmol/L Chloride 104 (98-107) mmol/L Carbon Dioxide < 5 L* (21-32) mmol/L POC Total CO2 (24-31) mmol/L Anion Gap 29.0 H (3-11) POC Anion Gap (16-25) mmol/L POC BUN (7-18) mg/dl BUN 30 H (7-18) mg/dl Creatinine 1.76 H (0.6-1.2) mg/dl POC Creatinine mg/dl Est Cr Clr Drug Dosing 41.0 ml/min Est GFR ( Amer) 47.4 Est GFR (Non-Af Amer) 40.9 BUN/Creatinine Ratio 16.9 (10-20) Glucose 790 H* (70-99) mg/dl POC Glucose (70-99) mg/dl POC Glucose (other) (70-99) mg/dl Estimat Average Glucose Hemoglobin A1c Lactate 2.7 H* (0.4-2.0) mmol/L Calcium 8.3 L (8.5-10.1) mg/dl POC Ioniz Calcium Felipe mmol/l Phosphorus (2.5-4.9) mg/dl Magnesium 2.8 H (1.8-2.4) mg/dl Total Bilirubin 0.3 (0.2-1) mg/dl AST 34 (15-37) U/L ALT 25 (12-78) U/L Alkaline Phosphatase 157 H (45-117) U/L Troponin I 0.022 (0-0.045) ng/ml Total Protein 7.1 (6.4-8.2) gm/dl Albumin 3.1 L (3.4-5.0) gm/dl Globulin 4.0 (2.5-4.0) gm/dl Albumin/Globulin Ratio 0.8 L (0.9-2) Beta-Hydroxybutyric Acd TNP TSH 0.192 L (0.300-4.500) uIu/ml Free T4 1.08 (0.8-1.6) ng/dl HCG, Qual (Negative) Specimen Hemolysis Urine Color Urine Appearance (Clear) Urine pH (4.5-7.5) Ur Specific Donna (1.000-1.030) Urine Protein (Negative) Urine Glucose (UA) (Negative) Urine Ketones (Negative) Urine Blood (Negative) Urine Nitrite (Negative) Urine Bilirubin (Negative) Urine Urobilinogen (Negative) Ur Leukocyte Esterase (Negative) Urine WBC (Auto) (0-5) /hpf Urine RBC (Auto) (0-4) /hpf U Hyaline Cast (Auto) (0-5) /lpf U Epithel Cells (Auto) (0-5) /lpf Urine Bacteria (Auto) (Negative) Granular Casts (0) /lpf Urine Yeast CSF Appearance CSF Color Xanthrochromic CSF WBC (0-5) /uL CSF RBC (0-) /uL CSF Cell Count Tube # CSF Chemistry Tube # CSF Glucose (40-70) mg/dl CSF Total Protein (15-45) mg/dl Urine Opiates Screen (Neg) Ur Methadone, Qual (Neg) Urine Barbiturates (Neg) Ur Phencyclidine (PCP) (Neg) U Amphetamin/Meth Scrn (Neg) MDMA (Ecstasy) Screen (Neg) U Benzodiazepines Scrn (Neg) Ur Cocaine Metabolite (Neg) U Marijuana (THC) Screen (Neg) 12/26/19 12/26/19 12/26/19 Range/Units 13:48 13:30 13:30 WBC 43.19 H* (4.8-10.8) K/uL RBC 4.72 (4.2-5.4) M/uL Hgb 12.9 (12.0-16.0) g/dL POC Hgb (12.0-16.0) g/dl Hct 41.9 (37-47) % POC Hct (37-47) % MCV 88.8 (80-100) fL MCH 27.3 (25-34) pg MCHC 30.8 L (32-36) g/dL RDW Std Deviation 42.9 (36.4-46.3) fL RDW Coeff of Rylee 13.2 (11.5-14.5) % Plt Count 291 (130-400) K/uL MPV 10.2 (7.4-10.4) fL Immature Gran % (Auto) 4.9 % Neut % (Auto) 72.9 % Lymph % (Auto) 15.3 % Sibley % (Auto) 6.4 % Eos % (Auto) 0.3 % Baso % (Auto) 0.2 % Immature Gran # (Auto) 2.13 H (0.00-0.02) K/uL Neut # (Auto) 31.50 H (1.4-6.5) K/uL Lymph # (Auto) 6.60 H (1.2-3.4) K/uL Sibley # (Auto) 2.77 H (0.11-0.59) K/uL Eos # (Auto) 0.11 (0-0.5) K/uL Baso # (Auto) 0.08 (0-0.2) K/uL Platelet Estimate Normal (Normal) PT (9.0-12.0) Seconds INR (0.9-1.1) APTT (21.0-31.0) Seconds PTT Ratio ABG pH (7.35-7.45) ABG pCO2 (35-46) mmHg ABG pO2 (80-95) mmHg ABG HCO3 (19-24) mmol/L ABG O2 Saturation (90-95) % ABG Base Excess (-9-1.8) mEq/L Tae Test (Pos) VBG pH (7.36-7.41) VBG pCO2 (38-50) mmHg VBG pO2 mmHg VBG HCO3 mmol/L VBG O2 Saturation % VBG Base Excess mEq/L Barometric Pressure mm/Hg Oxygen Given POC Sodium (135-144) mmol/L Sodium (136-145) mmol/L POC Potassium (3.3-5.0) mmol/L Potassium (3.5-5.1) mmol/L POC Chloride (101-112) mmol/L Chloride (98-107) mmol/L Carbon Dioxide (21-32) mmol/L POC Total CO2 (24-31) mmol/L Anion Gap (3-11) POC Anion Gap (16-25) mmol/L POC BUN (7-18) mg/dl BUN (7-18) mg/dl Creatinine (0.6-1.2) mg/dl POC Creatinine mg/dl Est Cr Clr Drug Dosing ml/min Est GFR ( Amer) Est GFR (Non-Af Amer) BUN/Creatinine Ratio (10-20) Glucose (70-99) mg/dl POC Glucose (70-99) mg/dl POC Glucose (other) (70-99) mg/dl Estimat Average Glucose Hemoglobin A1c Lactate (0.4-2.0) mmol/L Calcium (8.5-10.1) mg/dl POC Ioniz Calcium Felipe mmol/l Phosphorus (2.5-4.9) mg/dl Magnesium (1.8-2.4) mg/dl Total Bilirubin (0.2-1) mg/dl AST (15-37) U/L ALT (12-78) U/L Alkaline Phosphatase (45-117) U/L Troponin I (0-0.045) ng/ml Total Protein (6.4-8.2) gm/dl Albumin (3.4-5.0) gm/dl Globulin (2.5-4.0) gm/dl Albumin/Globulin Ratio (0.9-2) Beta-Hydroxybutyric Acd TSH (0.300-4.500) uIu/ml Free T4 (0.8-1.6) ng/dl HCG, Qual (Negative) Specimen Hemolysis Urine Color Yellow Urine Appearance Clear (Clear) Urine pH 5.0 (4.5-7.5) Ur Specific Donna 1.025 (1.000-1.030) Urine Protein 1+ H (Negative) Urine Glucose (UA) 3+ H (Negative) Urine Ketones 4+ H (Negative) Urine Blood 1+ H (Negative) Urine Nitrite Negative (Negative) Urine Bilirubin Negative (Negative) Urine Urobilinogen Negative (Negative) Ur Leukocyte Esterase Negative (Negative) Urine WBC (Auto) 1-5 (0-5) /hpf Urine RBC (Auto) 0-4 (0-4) /hpf U Hyaline Cast (Auto) 1-5 (0-5) /lpf U Epithel Cells (Auto) >30 H (0-5) /lpf Urine Bacteria (Auto) Negative (Negative) Granular Casts 1-5 H (0) /lpf Urine Yeast Not Reportable CSF Appearance CSF Color Xanthrochromic CSF WBC (0-5) /uL CSF RBC (0-) /uL CSF Cell Count Tube # CSF Chemistry Tube # CSF Glucose (40-70) mg/dl CSF Total Protein (15-45) mg/dl Urine Opiates Screen Neg (Neg) Ur Methadone, Qual Neg (Neg) Urine Barbiturates Neg (Neg) Ur Phencyclidine (PCP) Neg (Neg) U Amphetamin/Meth Scrn Neg (Neg) MDMA (Ecstasy) Screen Neg (Neg) U Benzodiazepines Scrn Neg (Neg) Ur Cocaine Metabolite Neg (Neg) U Marijuana (THC) Screen Neg (Neg) Diagnostic Findings I reviewed the image as well as report for the [facility], reviewed the report of the CT head as well as chest x-ray. Coding Level of Care Code Critical Care 1st 30-74 mins Diagnoses DKA (diabetic ketoacidoses) E10.10 Diabetes mellitus complication detail: without coma Diabetes mellitus type: type 1 Abnormal TSH R79.89 SOFI (acute kidney injury) N17.9 Leukocytosis D72.823 Leukocytosis type: leukemoid reaction Metabolic acidosis E87.2 Acute metabolic encephalopathy G93.41 Time Spent (min) 45 Comment I have personally spent 45 minutes of critical care time in the direct management of this patient. This is a life/limb threatening event. This includes time spent evaluating patient, direct bedside care, chart review, placing orders, interpretation of diagnostic studies, discussion with consultants, patient, and/or family members regarding treatment decisions, as well as other required patient management activities. This time is exclusive of all separately billable procedures, and teaching time and separate from and in addition to any other critical care service time. (1) Leukocytosis Leukocytosis type: leukemoid reaction Qualified Code(s): D72.823 - Leukemoid reaction (2) DKA (diabetic ketoacidoses) Diabetes mellitus complication detail: without coma Diabetes mellitus type: type 1 Qualified Code(s): E10.10 - Type 1 diabetes mellitus with ketoacidosis without coma
--- NOTE | 2019-12-26 17:38 | XRay Report ---
KUB CLINICAL HISTORY: Enteric tube placement. FINDINGS: An AP supine view of the lower chest and upper abdomen is obtained. No prior studies are av ailable for comparison at the time of dictation. An enteric tube has been placed. The tip projects be low the diaphragm over the gastric fundus. There is no evidence of bowel obstruction in the upper abd omen. No evidence of intraperitoneal free air is seen on this supine view. The lung bases are clear a s imaged. IMPRESSION: An enteric tube has been placed as above. Electronically signed by: Bear Schrader M.D. 12/26/2019 5:37 PM
[2019-12-26] MEDS: NORMOSOL-R 1,000 ML IV SCH ×2 (17:50→20:46)
[2019-12-26] MEDS: INSULIN ASPART 100 UNITS/ML 3 ML PEN SC SCH ×2 (17:53→21:26)
[2019-12-26] MEDS ORDERED: ICU PROTOCOL FOR HYPERGLYCEMIA PRN (17:54)
[2019-12-26] MEDS ORDERED: POTASSIUM CHLORIDE 20 MEQ/15 ML UDC PO STA (17:54)
[2019-12-26 18:36] LABS: Glucose 541 mg/dl (70-99)
[2019-12-26 18:43] LABS: Pregnancy Test, Urine Negative (Negative)
[2019-12-26] MEDS ORDERED: PHARMACY GLYCEMIC MGMT CONSULT PRN (18:47)
[2019-12-26] MEDS ORDERED: ENOXAPARIN INJ 30 MG/0.3 ML SYR SQ SCH (19:00)
[2019-12-26] MEDS: FAMOTIDINE 20 MG in SYRINGE 3 ML IV SCH (19:49)
--- NOTE | 2019-12-26 19:59 | Billing Data ---
Date of Service December 26, 2019 Coding Level of Care Code Critical Care 1st 30-74 mins Time Spent (min) 60
[2019-12-26 20:17] LABS: BUN Creatinine Ratio 17.6 (10-20); Calcium 8.4 mg/dl (8.5-10.1); Creatinine Clr Calc Pharmacy 52.5 ml/min; Est GFR (African American) 64.8; Est GFR (Non-African American) 55.9; Magnesium 2.3 mg/dl (1.8-2.4); Phosphorus 2.3 mg/dl (2.5-4.9); Potassium 4.7 mmol/L (3.5-5.1)
[2019-12-26] MEDS ORDERED: D5NSS + 20MEQ KCL 20 MEQ/1,000 ML BAG IV SCH (21:00)
[2019-12-27 00:06] LABS: BUN Creatinine Ratio 13.7 (10-20); Creatinine Clr Calc Pharmacy 52.1 ml/min; Est GFR (African American) 64.2; Est GFR (Non-African American) 55.4; Magnesium 2.1 mg/dl (1.8-2.4); Phosphorus 1.2 mg/dl (2.5-4.9); Potassium 5.2 mmol/L (3.5-5.1)
[2019-12-27] MEDS ORDERED: POTASSIUM CHLORIDE 10 MEQ in D5W AND 1/2NSS 1,000 ML IV SCH (01:00)
[2019-12-27 04:10] LABS: Alanine Aminotransferase 23 U/L (12-78); Albumin Level 3.1 gm/dl (3.4-5.0); Alkaline Phosphatase 133 U/L (45-117); Aspartate Aminotransferase 33 U/L (15-37); BUN Creatinine Ratio 10.8 (10-20); Bilirubin Direct < 0.1 mg/dl (0-0.2); Bilirubin,Total 0.2 mg/dl (0.2-1); Blood Urea Nitrogen 16 mg/dl (7-18); Calcium 8.3 mg/dl (8.5-10.1); Carbon Dioxide 9 mmol/L (21-32); Chloride 126 mmol/L (98-107); Creatinine Clr Calc Pharmacy 48.2 ml/min; Est GFR (African American) 58.5; Est GFR (Non-African American) 50.4; Glucose 268 mg/dl (70-99); Phosphorus 0.5 mg/dl (2.5-4.9); Potassium 4.4 mmol/L (3.5-5.1); Sodium 149 mmol/L (136-145); Total Protein 7.4 gm/dl (6.4-8.2)
[2019-12-27] MEDS ORDERED: SODIUM PHOSPHATE 3 MMOL/1 ML 5 ML VIAL IV SCH (04:15)
[2019-12-27 04:17] LABS: Hematocrit (blood only) 39.8 % (37-47); Hemoglobin 13.3 g/dL (12.0-16.0); Mean Corpuscular Hemoglobin 26.9 pg (25-34); Mean Corpuscular Hgb Conc 33.4 g/dL (32-36); Mean Corpuscular Volume 80.6 fL (80-100); Platelet Count 235 K/uL (130-400); RDW Coefficient of Variation 12.8 % (11.5-14.5); Red Blood Count 4.94 M/uL (4.2-5.4); White Blood Count 19.73 K/uL (4.8-10.8)
[2019-12-27 04:18] LABS: Basophils # (auto) 0.02 K/uL (0-0.2); Basophils % (auto) 0.1 %; Eosinophils # (auto) 0.02 K/uL (0-0.5); Eosinophils % (auto) 0.1 %; Immature Granulocytes # (auto) 0.12 K/uL (0.00-0.02); Immature Granulocytes % (auto) 0.6 %; Lymphocytes # (auto) 2.31 K/uL (1.2-3.4); Lymphocytes % (auto) 11.7 %; Monocytes # (auto) 0.86 K/uL (0.11-0.59); Monocytes % (auto) 4.4 %; Neutrophils % (auto) 83.1 %
[2019-12-27] MEDS ORDERED: SODIUM PHOSPHATE 30 MMOL in SODIUM CHLORIDE 0.9% 500 ML IV ONE (05:15)
[2019-12-27] MEDS: SODIUM CHLOR 0.45% + 20MEQ KCL 20 MEQ/1,000 ML BAG IV SCH ×2 (05:24→09:40)
[2019-12-27 06:02] LABS: Estimated Average Glucose 372 mg/dl; Hemoglobin A1C 14.6 % (4.5-5.6)
[2019-12-27] MEDS: INSULIN ASPART 100 UNITS/ML 3 ML PEN SC SCH ×4 (07:39→23:03)
[2019-12-27] MEDS: FAMOTIDINE 20 MG in SYRINGE 3 ML IV SCH (07:46)
[2019-12-27 08:30] LABS: BUN Creatinine Ratio 10.9 (10-20); Calcium 8.1 mg/dl (8.5-10.1); Creatinine Clr Calc Pharmacy 48.6 ml/min; Est GFR (African American) 58.9; Est GFR (Non-African American) 50.9; Potassium 3.9 mmol/L (3.5-5.1)
[2019-12-27] MEDS ORDERED: POTASSIUM CHLORIDE 20 MEQ/15 ML UDC PO STA (09:24)
[2019-12-27] MEDS ORDERED: POTASSIUM PHOS 3 MMOL/1 ML INFUSION IV STA ×2 (09:24→19:12)
[2019-12-27] MEDS ORDERED: POTASSIUM PHOSPHATE 9 MMOL in SODIUM CHLORIDE 0.9% 250 ML IV ONE (09:30)
[2019-12-27] MEDS ORDERED: D5W AND LACTATED RINGERS 1,000 ML IV SCH (09:30)
--- NOTE | 2019-12-27 09:33 | Critical Care Progress Note ---
Date of Service December 27, 2019 Assessment & Plan (1) DKA (diabetic ketoacidoses): Reason Critically Ill: 19-year-old female with diabetic ketoacidosis PLAN: Neuro: Acute metabolic encephalopathy: Improved/resolved Resp: Tachypnea: Resolved -Compensatory CV: Tachycardia: Improved -Secondary to volume depletion of DKA Fluids/Renal: Dehydration secondary to DKA: Improved Hypernatremia: Improving -Secondary to aggressive fluid repletion Hyperchloremia: Improving ID: Lumbar puncture completed in ED -Monitor fever curve GI/Nutrition: NG tube placed: Discontinued Type I ADA diet Heme: Leukemoid reaction: Improved DVT prophylaxis: SCDs Endocrine: Low TSH -Free T4 within normal limits -Will defer additional work-up to primary care physician. Type 1 insulin-dependent diabetes -Poorly controlled given A1c greater than 15 Insulin infusion continuing to run -Transitioning to subcutaneous insulin Vascular access: Peripheral IVs Code Status: Full Disposition: Stable for downgrade out of ICU patient neurologically intact and not requiring critical interventions (2) Abnormal TSH: (3) SOFI (acute kidney injury): (4) Leukocytosis: (5) Metabolic acidosis: (6) Acute metabolic encephalopathy: Admission and Anticipated Discharge Date Admission Date: December 26, 2019 Subjective Patient without significant complaints feels mildly better still overall generally unwell. Review of Systems Review of Systems: No chest pain no shortness of breath Physical Exam Physical Exam: General: Alert. nontoxic. Skin: Warm, dry, Head: Atraumatic Ears, nose, mouth and throat: airway patent, mucous membranes are improved Cardiovascular: Normal peripheral perfusion Respiratory: no respiratory distress Gastrointestinal: Non distended Musculoskeletal: No deformity Results & Data Results & Data ([facility]) Vital Signs (Past 12 Hours) Vital Signs Temp Pulse Resp BP Pulse Ox 12/27/19 05:38 114 H 31 H 108/60 100 12/27/19 04:38 116 H 30 H 119/67 100 12/27/19 03:38 36.6 C 122 H 30 H 114/67 100 12/27/19 02:38 125 H 31 H 114/66 100 12/27/19 01:38 127 H 32 H 115/68 100 12/27/19 00:38 131 H 35 H 115/70 100 12/27/19 00:00 130 H 12/26/19 23:56 36.4 C L 129 H 31 H 120/86 100 12/26/19 23:38 128 H 31 H 120/86 100 12/26/19 22:38 135 H 137/79 100 12/26/19 21:38 134 H 104/64 100 Coding Level of Care Code 20309 Subseq Hosp Care Lvl 3 Diagnoses DKA (diabetic ketoacidoses) E10.10 Diabetes mellitus complication detail: without coma Diabetes mellitus type: type 1 Abnormal TSH R79.89 SOFI (acute kidney injury) N17.9 Leukocytosis D72.823 Leukocytosis type: leukemoid reaction Metabolic acidosis E87.2 Acute metabolic encephalopathy G93.41 (1) DKA (diabetic ketoacidoses) Diabetes mellitus complication detail: without coma Diabetes mellitus type: type 1 Qualified Code(s): E10.10 - Type 1 diabetes mellitus with ketoacidosis without coma (2) Leukocytosis Leukocytosis type: leukemoid reaction Qualified Code(s): D72.823 - Leukemoid reaction
--- NOTE | 2019-12-27 09:54 | XCELERA ---
[id number]
--- NOTE | 2019-12-27 12:14 | Pharmacy Report ---
Glycemic Control Consultation - Date of Service December 27, 2019 - Scope Scope: Glycemic Pharmacist consulted for glycemic control and to write orders per [facility] inpatient glycemic control protocol. - Objective Weight: 50.4 kg Accuchecks BSG (last 24hrs): 12/26/19 12/26/19 12/26/19 13:48 13:48 15:26 Glucose 790 H* POC Glucose > 600 H* POC Glucose (other) > 700 H* 12/26/19 12/26/19 12/26/19 15:28 15:58 17:45 Glucose 541 H* POC Glucose > 600 H* 388 H* POC Glucose (other) 12/26/19 12/26/19 12/26/19 18:44 19:46 19:47 Glucose 291 H POC Glucose 300 H 238 H POC Glucose (other) 12/26/19 12/26/19 12/26/19 20:41 21:44 22:43 Glucose POC Glucose 177 H 235 H 251 H POC Glucose (other) 12/26/19 12/26/19 12/27/19 23:16 23:46 00:50 Glucose 280 H POC Glucose 200 H 219 H POC Glucose (other) 12/27/19 12/27/19 12/27/19 01:42 02:50 03:32 Glucose 268 H POC Glucose 234 H 236 H POC Glucose (other) 12/27/19 12/27/19 12/27/19 04:17 06:23 07:52 Glucose 173 H POC Glucose 203 H 210 H POC Glucose (other) 12/27/19 08:30 Glucose POC Glucose 192 H POC Glucose (other) Laboratory Data (last 24hrs): 12/26/19 12/26/19 12/26/19 13:48 15:58 19:47 Potassium 5.4 H 4.7 Carbon Dioxide < 5 L* < 5 L* 5 L* Anion Gap 29.0 H 22.0 H 24.0 H Creatinine 1.76 H 1.36 H D 1.36 H Est Cr Clr Drug Dosing 41.0 53.0 52.5 Beta-Hydroxybutyric Acd TNP TNP 12/26/19 12/27/19 12/27/19 23:16 03:32 07:52 Potassium 5.2 H 4.4 D 3.9 Carbon Dioxide 7 L* 9 L* 10 L Anion Gap 20.0 H 14.0 H 14.0 H Creatinine 1.37 H 1.48 H 1.47 H Est Cr Clr Drug Dosing 52.1 48.2 48.6 Beta-Hydroxybutyric Acd HbA1c: Hemoglobin A1c 14.6 % (4.5-5.6) H 12/26/19 13:48 - Recent Pertinent Medications Outpatient Anti-diabetic Regimen: * Humalog pump * A1c = 14.6 % on 12/26/19 The patient is currently receiving: * Insulin drip @ 1.8 units/hr Risk Factors for Insulin Resistance: * IVF: D5LR @ 80 mL/hr (after ~6L previous fluid resuscitation) * Diet: NPO to T1DM (started 12/26 AM) - Assessment & Plan Assessment & Plan: ASSESSMENT: * 19 yo F with type 1 diabetes presenting with severe DKA associated with metabolic encephalopathy, severe acidosis, brief narrow complex tachycardia, and metabolic derangements, currently in ICU and on insulin drip * History on admission limited 2nd encephalopathy, but per mother, no history of DKA, and questioned possible insulin pump malfunction. While it is certainly possible that pump failure precipitated abrupt DKA, I also suspect poor control as outpatient in general 2nd HbA1c of 14.6%. * Current fluid of D5LR is appropriate for now, although does not contain potassium. This was discussed on ICU rounds - OK as potassium is being repleted outside of her IVF * Phospate supplementation appropriate given severe hypophosphatemia < 1 * Will continue insulin drip for now, continue higher DKA insulin drip goal range, and continue with dextrose-containing fluids 2nd persistent acidosis and noted anion gap * If anion gap closes and acidosis resolves, may consider recommending removal of dextrose from fluids and decreasing goal range on insulin drip. However, it would still be reasonable to continue the insulin drip until 12/27 AM. At that point, *if* it is determined that pump can be safely resumed and patient has supplies, may be able to transition directly from drip to pump. However, it may be difficult to obtain pump supplies given current restrictions in visitation due to COVID-19. Patient may require transition off of drip with basal/bolus as inpatient, with conversion back to pump as outpatient. * Either way, strongly recommend determining reason for pump failure (user issue or pump issue) prior to resuming pump. PLAN FOR INPATIENT GLYCEMIC CONTROL: * Continue insulin drip * Goal Range 150 - 250 mg/dl * Agree with continuing D5LR @ 80 mL/hr for now * Bolus insulin * NovoLog per scale ACHS, with CHO ratio determined by insulin drip calculator * Please note that the plan above was derived based on current level of insulin resistance and hospital stress. These recommendations are appropriate for inpatient admission only. Plan of care upon discharge will need to be reassessed to avoid potential outpatient hypo/hyperglycemia. Thank you.
--- NOTE | 2019-12-27 12:26 | Hospitalist Progress Note ---
Date of Service December 27, 2019 Assessment & Plan (1) DKA (diabetic ketoacidoses): Pt is a 19 yo F PMHx DM1, pulmonary artery stenosis admitted for DKA DKA: - On admission BSG in 700s with gapped metabolic acidosis: pH 6.88, gap 29, bicarb 5. -Gap is closing, metabolic acidosis is improving, continues with hypernatremia and hyperchloremia, blood glucose much improved -Follow serial labs, replace electrolytes as needed -Continue insulin gtt and BSG's as per protocol - Infectious workup as below. -Appreciate teacher cclc management-now stable for transfer to PCU -NG tube is been removed and patient is tolerating some p.o. -senior health educator consult placed -Patient's mother brought in the pump supplies and we can replace her insulin pump when preparing for discharge -Hemoglobin A1c severely uncontrolled at 14.6%-plans to get patient established with local endocrinology after discharge-nurse navigator consulted for this Hypernatremia-likely secondary to fluids -Change to D5 half-normal saline at 100 mL's per hour Hypophosphatemia -Replace with further IV potassium phosphate -Follow phosphorus levels Leukocytosis: - Pt with leukocytosis to 43 on admission and is now improved to 19k; remains afebrile, SpO2 normal at this time, LP without signs of infection, UA negative for UTI, CXR without signs of pneumonia. - Unlikely to be infectious, possibly due to dehydration and stress response. Did receive 1 dose of ceftriaxone but was not continued - Lactate elevated on arrival to 2.7. -Continue to follow BCx x2, UCx, and CSF cultures -No need for antibiotics at this time - Continue to follow daily CBC. SOFI: - Likely 2/2 dehydration/prerenal in the setting of DKA. Creatinine remains persistently elevated at 1.4-1.5 - Fluids as above. - Labwork as above. Acute metabolic encephalopathy: Improving today, much more responsive and alert and awake and oriented CT head negative LP performed without evidence of infection -Likely secondary to DKA -Continue treating DKA as above Abnormal TSH: -TSH is low could be secondary to acute illness -Recommend repeat thyroid function tests in 4 to 6 weeks when she is well Pulmonary stenosis: -Status post stenting of the pulmonary artery in childhood -Chest x-ray with mild prominence of the right hilum -Echocardiogram here is completely normal Code Status: FULL CODE DVT ppx: SCDs Dispo: transfer out of ICU to PCU (2) Acute metabolic encephalopathy: (3) Metabolic acidosis: (4) Leukocytosis: (5) SOFI (acute kidney injury): (6) Abnormal TSH: (7) Pulmonary stenosis: (8) Hypophosphatemia: Admission and Anticipated Discharge Date Admission Date: December 26, 2019 Subjective Patient feeling better today. She is more awake and alert and conversive but has a hoarse voice. NG tube was removed. Her anion gap is improving but is still mildly elevated. She has a lunch tray in front of her but she does not have much of an appetite. She denies chest pain or shortness of breath, denies abdominal pain or nausea. She reports that she does not know why her insulin pump stopped working. Her mom tells me in the phone that she is had an insulin pump since first grade and is very familiar with them. senior health educator met with her and noted that her insulin pump was not likely connected properly. Patient remains with sinus tachycardia on telemetry. She was stable for transfer to the ICU to PCU today. Her mom requests that we help facilitate getting her set up with endocrinology in the local area. Patient is currently staying at her off campus apartment at [facility] rather than moving home to [place] because her mom is a nurse that works frequently with COVID-19 patients in an effort to avoid getting COVID-19. Review of Systems 2 Review of Systems: All systems reviewed & are unremarkable except as noted in HPI & below Physical Exam Constitutional: + thin; no acute distress and not lethargic More alert and awake, flat affect, does follow commands and answer all questions. Sitting up in bed Eyes: + anicteric sclerae ENMT: external ear and nose normal, oropharynx normal Neck: trachea midline, no thyromegaly Respiratory: normal respiratory effort, lungs clear to auscultation Cardiovascular: RRR, no murmur, no edema Chest (Breasts): Chest: normal inspection of chest Gastrointestinal (Abdomen): normal bowel sounds, soft, nontender, no hepatosplenomegaly Musculoskeletal: Extremities: extremities normal to inspection; no cyanosis and no clubbing Skin: no rashes, warm and dry Neurologic: moves all extremities and awake; no focal motor deficits Genitourinary: Rosas catheter in place draining clear yellow urine Lymphatic: no lymphedema Results & Data Results & Data ([facility]) Vital Signs (Past 12 Hours) Vital Signs Temp Pulse Resp BP Pulse Ox 12/27/19 09:38 36.3 C L 116 H 29 H 115/75 12/27/19 09:30 118 H 31 H 100 12/27/19 09:00 116 H 30 H 12/27/19 08:38 116 H 28 H 117/76 12/27/19 08:30 120 H 33 H 12/27/19 08:00 122 H 22 12/27/19 07:38 115 H 27 H 109/75 12/27/19 07:30 120 H 28 H 12/27/19 07:00 115 H 27 H 12/27/19 06:45 113 H 29 H 12/27/19 05:38 114 H 31 H 108/60 12/27/19 04:38 116 H 30 H 119/67 12/27/19 03:38 36.6 C 122 H 30 H 114/67 12/27/19 02:38 125 H 31 H 114/66 12/27/19 01:38 127 H 32 H 115/68 12/27/19 00:38 131 H 35 H 115/70 100 Laboratory Results 12/27/19 12/27/19 12/27/19 Range/Units 18:15 18:10 17:19 WBC (4.8-10.8) K/uL RBC (4.2-5.4) M/uL Hgb (12.0-16.0) g/dL Hct (37-47) % MCV (80-100) fL MCH (25-34) pg MCHC (32-36) g/dL RDW Std Deviation (36.4-46.3) fL RDW Coeff of Rylee (11.5-14.5) % Plt Count (130-400) K/uL MPV (7.4-10.4) fL Immature Gran % (Auto) % Neut % (Auto) % Lymph % (Auto) % [place] % (Auto) % Eos % (Auto) % Baso % (Auto) % Immature Gran # (Auto) (0.00-0.02) K/uL Neut # (Auto) (1.4-6.5) K/uL Lymph # (Auto) (1.2-3.4) K/uL [place] # (Auto) (0.11-0.59) K/uL Eos # (Auto) (0-0.5) K/uL Baso # (Auto) (0-0.2) K/uL VBG pH (7.36-7.41) Sodium 149 H (136-145) mmol/L Potassium 3.8 (3.5-5.1) mmol/L Chloride 123 H (98-107) mmol/L Carbon Dioxide 13 L (21-32) mmol/L Anion Gap 12.0 H (3-11) BUN 14 (7-18) mg/dl Creatinine 1.40 H (0.6-1.2) mg/dl Est Cr Clr Drug Dosing 51.0 ml/min Est GFR ( Amer) 62.5 Est GFR (Non-Af Amer) 54.0 BUN/Creatinine Ratio 9.6 L (10-20) Glucose 229 H (70-99) mg/dl POC Glucose 219 H 165 H (70-99) mg/dl Estimat Average Glucose mg/dl Hemoglobin A1c (4.5-5.6) % Calcium 8.8 (8.5-10.1) mg/dl Phosphorus 0.7 L* (2.5-4.9) mg/dl Magnesium 2.0 (1.8-2.4) mg/dl Total Bilirubin (0.2-1) mg/dl Direct Bilirubin (0-0.2) mg/dl AST (15-37) U/L ALT (12-78) U/L Alkaline Phosphatase (45-117) U/L Total Protein (6.4-8.2) gm/dl Albumin (3.4-5.0) gm/dl Nasal Screen MRSA (PCR) (Negative) 12/27/19 12/27/19 12/27/19 Range/Units 17:03 16:45 16:29 WBC (4.8-10.8) K/uL RBC (4.2-5.4) M/uL Hgb (12.0-16.0) g/dL Hct (37-47) % MCV (80-100) fL MCH (25-34) pg MCHC (32-36) g/dL RDW Std Deviation (36.4-46.3) fL RDW Coeff of Rylee (11.5-14.5) % Plt Count (130-400) K/uL MPV (7.4-10.4) fL Immature Gran % (Auto) % Neut % (Auto) % Lymph % (Auto) % [place] % (Auto) % Eos % (Auto) % Baso % (Auto) % Immature Gran # (Auto) (0.00-0.02) K/uL Neut # (Auto) (1.4-6.5) K/uL Lymph # (Auto) (1.2-3.4) K/uL [place] # (Auto) (0.11-0.59) K/uL Eos # (Auto) (0-0.5) K/uL Baso # (Auto) (0-0.2) K/uL VBG pH (7.36-7.41) Sodium (136-145) mmol/L Potassium (3.5-5.1) mmol/L Chloride (98-107) mmol/L Carbon Dioxide (21-32) mmol/L Anion Gap (3-11) BUN (7-18) mg/dl Creatinine (0.6-1.2) mg/dl Est Cr Clr Drug Dosing ml/min Est GFR ( Amer) Est GFR (Non-Af Amer) BUN/Creatinine Ratio (10-20) Glucose (70-99) mg/dl POC Glucose 113 H 98 109 H (70-99) mg/dl Estimat Average Glucose mg/dl Hemoglobin A1c (4.5-5.6) % Calcium (8.5-10.1) mg/dl Phosphorus (2.5-4.9) mg/dl Magnesium (1.8-2.4) mg/dl Total Bilirubin (0.2-1) mg/dl Direct Bilirubin (0-0.2) mg/dl AST (15-37) U/L ALT (12-78) U/L Alkaline Phosphatase (45-117) U/L Total Protein (6.4-8.2) gm/dl Albumin (3.4-5.0) gm/dl Nasal Screen MRSA (PCR) (Negative) 12/27/19 12/27/19 12/27/19 Range/Units 12:49 12:49 12:30 WBC (4.8-10.8) K/uL RBC (4.2-5.4) M/uL Hgb (12.0-16.0) g/dL Hct (37-47) % MCV (80-100) fL MCH (25-34) pg MCHC (32-36) g/dL RDW Std Deviation (36.4-46.3) fL RDW Coeff of Rylee (11.5-14.5) % Plt Count (130-400) K/uL MPV (7.4-10.4) fL Immature Gran % (Auto) % Neut % (Auto) % Lymph % (Auto) % [place] % (Auto) % Eos % (Auto) % Baso % (Auto) % Immature Gran # (Auto) (0.00-0.02) K/uL Neut # (Auto) (1.4-6.5) K/uL Lymph # (Auto) (1.2-3.4) K/uL [place] # (Auto) (0.11-0.59) K/uL Eos # (Auto) (0-0.5) K/uL Baso # (Auto) (0-0.2) K/uL VBG pH 7.36 (7.36-7.41) Sodium 149 H (136-145) mmol/L Potassium 4.0 (3.5-5.1) mmol/L Chloride 126 H (98-107) mmol/L Carbon Dioxide 12 L (21-32) mmol/L Anion Gap 12.0 H (3-11) BUN 14 (7-18) mg/dl Creatinine 1.50 H (0.6-1.2) mg/dl Est Cr Clr Drug Dosing 47.6 ml/min Est GFR ( Amer) 57.5 Est GFR (Non-Af Amer) 49.6 BUN/Creatinine Ratio 9.4 L (10-20) Glucose 171 H (70-99) mg/dl POC Glucose 184 H (70-99) mg/dl Estimat Average Glucose mg/dl Hemoglobin A1c (4.5-5.6) % Calcium 8.6 (8.5-10.1) mg/dl Phosphorus 1.4 L* (2.5-4.9) mg/dl Magnesium 2.1 (1.8-2.4) mg/dl Total Bilirubin (0.2-1) mg/dl Direct Bilirubin (0-0.2) mg/dl AST (15-37) U/L ALT (12-78) U/L Alkaline Phosphatase (45-117) U/L Total Protein (6.4-8.2) gm/dl Albumin (3.4-5.0) gm/dl Nasal Screen MRSA (PCR) (Negative) 12/27/19 12/27/19 12/27/19 Range/Units 08:30 07:53 07:52 WBC (4.8-10.8) K/uL RBC (4.2-5.4) M/uL Hgb (12.0-16.0) g/dL Hct (37-47) % MCV (80-100) fL MCH (25-34) pg MCHC (32-36) g/dL RDW Std Deviation (36.4-46.3) fL RDW Coeff of Rylee (11.5-14.5) % Plt Count (130-400) K/uL MPV (7.4-10.4) fL Immature Gran % (Auto) % Neut % (Auto) % Lymph % (Auto) % [place] % (Auto) % Eos % (Auto) % Baso % (Auto) % Immature Gran # (Auto) (0.00-0.02) K/uL Neut # (Auto) (1.4-6.5) K/uL Lymph # (Auto) (1.2-3.4) K/uL [place] # (Auto) (0.11-0.59) K/uL Eos # (Auto) (0-0.5) K/uL Baso # (Auto) (0-0.2) K/uL VBG pH 7.32 L (7.36-7.41) Sodium 150 H (136-145) mmol/L Potassium 3.9 (3.5-5.1) mmol/L Chloride 126 H (98-107) mmol/L Carbon Dioxide 10 L (21-32) mmol/L Anion Gap 14.0 H (3-11) BUN 16 (7-18) mg/dl Creatinine 1.47 H (0.6-1.2) mg/dl Est Cr Clr Drug Dosing 48.6 ml/min Est GFR ( Amer) 58.9 Est GFR (Non-Af Amer) 50.9 BUN/Creatinine Ratio 10.9 (10-20) Glucose 173 H (70-99) mg/dl POC Glucose 192 H (70-99) mg/dl Estimat Average Glucose mg/dl Hemoglobin A1c (4.5-5.6) % Calcium 8.1 L (8.5-10.1) mg/dl Phosphorus 2.0 L D (2.5-4.9) mg/dl Magnesium 2.0 (1.8-2.4) mg/dl Total Bilirubin (0.2-1) mg/dl Direct Bilirubin (0-0.2) mg/dl AST (15-37) U/L ALT (12-78) U/L Alkaline Phosphatase (45-117) U/L Total Protein (6.4-8.2) gm/dl Albumin (3.4-5.0) gm/dl Nasal Screen MRSA (PCR) (Negative) 12/27/19 12/27/19 12/27/19 Range/Units 06:23 04:17 03:32 WBC (4.8-10.8) K/uL RBC (4.2-5.4) M/uL Hgb (12.0-16.0) g/dL Hct (37-47) % MCV (80-100) fL MCH (25-34) pg MCHC (32-36) g/dL RDW Std Deviation (36.4-46.3) fL RDW Coeff of Rylee (11.5-14.5) % Plt Count (130-400) K/uL MPV (7.4-10.4) fL Immature Gran % (Auto) % Neut % (Auto) % Lymph % (Auto) % [place] % (Auto) % Eos % (Auto) % Baso % (Auto) % Immature Gran # (Auto) (0.00-0.02) K/uL Neut # (Auto) (1.4-6.5) K/uL Lymph # (Auto) (1.2-3.4) K/uL [place] # (Auto) (0.11-0.59) K/uL Eos # (Auto) (0-0.5) K/uL Baso # (Auto) (0-0.2) K/uL VBG pH (7.36-7.41) Sodium 149 H (136-145) mmol/L Potassium 4.4 D (3.5-5.1) mmol/L Chloride 126 H (98-107) mmol/L Carbon Dioxide 9 L* (21-32) mmol/L Anion Gap 14.0 H (3-11) BUN 16 (7-18) mg/dl Creatinine 1.48 H (0.6-1.2) mg/dl Est Cr Clr Drug Dosing 48.2 ml/min Est GFR ( Amer) 58.5 Est GFR (Non-Af Amer) 50.4 BUN/Creatinine Ratio 10.8 (10-20) Glucose 268 H (70-99) mg/dl POC Glucose 210 H 203 H (70-99) mg/dl Estimat Average Glucose mg/dl Hemoglobin A1c (4.5-5.6) % Calcium 8.3 L (8.5-10.1) mg/dl Phosphorus 0.5 L* (2.5-4.9) mg/dl Magnesium 2.0 (1.8-2.4) mg/dl Total Bilirubin 0.2 (0.2-1) mg/dl Direct Bilirubin < 0.1 (0-0.2) mg/dl AST 33 (15-37) U/L ALT 23 (12-78) U/L Alkaline Phosphatase 133 H (45-117) U/L Total Protein 7.4 (6.4-8.2) gm/dl Albumin 3.1 L (3.4-5.0) gm/dl Nasal Screen MRSA (PCR) (Negative) 12/27/19 12/27/19 12/27/19 Range/Units 03:32 03:32 02:50 WBC 19.73 H D (4.8-10.8) K/uL RBC 4.94 (4.2-5.4) M/uL Hgb 13.3 (12.0-16.0) g/dL Hct 39.8 (37-47) % MCV 80.6 D (80-100) fL MCH 26.9 (25-34) pg MCHC 33.4 (32-36) g/dL RDW Std Deviation 38.0 (36.4-46.3) fL RDW Coeff of Rylee 12.8 (11.5-14.5) % Plt Count 235 (130-400) K/uL MPV 10.0 (7.4-10.4) fL Immature Gran % (Auto) 0.6 % Neut % (Auto) 83.1 % Lymph % (Auto) 11.7 % [place] % (Auto) 4.4 % Eos % (Auto) 0.1 % Baso % (Auto) 0.1 % Immature Gran # (Auto) 0.12 H (0.00-0.02) K/uL Neut # (Auto) 16.40 H (1.4-6.5) K/uL Lymph # (Auto) 2.31 (1.2-3.4) K/uL [place] # (Auto) 0.86 H (0.11-0.59) K/uL Eos # (Auto) 0.02 (0-0.5) K/uL Baso # (Auto) 0.02 (0-0.2) K/uL VBG pH 7.30 L (7.36-7.41) Sodium (136-145) mmol/L Potassium (3.5-5.1) mmol/L Chloride (98-107) mmol/L Carbon Dioxide (21-32) mmol/L Anion Gap (3-11) BUN (7-18) mg/dl Creatinine (0.6-1.2) mg/dl Est Cr Clr Drug Dosing ml/min Est GFR ( Amer) Est GFR (Non-Af Amer) BUN/Creatinine Ratio (10-20) Glucose (70-99) mg/dl POC Glucose 236 H (70-99) mg/dl Estimat Average Glucose mg/dl Hemoglobin A1c (4.5-5.6) % Calcium (8.5-10.1) mg/dl Phosphorus (2.5-4.9) mg/dl Magnesium (1.8-2.4) mg/dl Total Bilirubin (0.2-1) mg/dl Direct Bilirubin (0-0.2) mg/dl AST (15-37) U/L ALT (12-78) U/L Alkaline Phosphatase (45-117) U/L Total Protein (6.4-8.2) gm/dl Albumin (3.4-5.0) gm/dl Nasal Screen MRSA (PCR) (Negative) 12/27/19 12/27/19 12/26/19 Range/Units 01:42 00:50 23:46 WBC (4.8-10.8) K/uL RBC (4.2-5.4) M/uL Hgb (12.0-16.0) g/dL Hct (37-47) % MCV (80-100) fL MCH (25-34) pg MCHC (32-36) g/dL RDW Std Deviation (36.4-46.3) fL RDW Coeff of Rylee (11.5-14.5) % Plt Count (130-400) K/uL MPV (7.4-10.4) fL Immature Gran % (Auto) % Neut % (Auto) % Lymph % (Auto) % [place] % (Auto) % Eos % (Auto) % Baso % (Auto) % Immature Gran # (Auto) (0.00-0.02) K/uL Neut # (Auto) (1.4-6.5) K/uL Lymph # (Auto) (1.2-3.4) K/uL [place] # (Auto) (0.11-0.59) K/uL Eos # (Auto) (0-0.5) K/uL Baso # (Auto) (0-0.2) K/uL VBG pH (7.36-7.41) Sodium (136-145) mmol/L Potassium (3.5-5.1) mmol/L Chloride (98-107) mmol/L Carbon Dioxide (21-32) mmol/L Anion Gap (3-11) BUN (7-18) mg/dl Creatinine (0.6-1.2) mg/dl Est Cr Clr Drug Dosing ml/min Est GFR ( Amer) Est GFR (Non-Af Amer) BUN/Creatinine Ratio (10-20) Glucose (70-99) mg/dl POC Glucose 234 H 219 H 200 H (70-99) mg/dl Estimat Average Glucose mg/dl Hemoglobin A1c (4.5-5.6) % Calcium (8.5-10.1) mg/dl Phosphorus (2.5-4.9) mg/dl Magnesium (1.8-2.4) mg/dl Total Bilirubin (0.2-1) mg/dl Direct Bilirubin (0-0.2) mg/dl AST (15-37) U/L ALT (12-78) U/L Alkaline Phosphatase (45-117) U/L Total Protein (6.4-8.2) gm/dl Albumin (3.4-5.0) gm/dl Nasal Screen MRSA (PCR) (Negative) 12/26/19 12/26/19 12/26/19 Range/Units 23:16 23:16 22:43 WBC (4.8-10.8) K/uL RBC (4.2-5.4) M/uL Hgb (12.0-16.0) g/dL Hct (37-47) % MCV (80-100) fL MCH (25-34) pg MCHC (32-36) g/dL RDW Std Deviation (36.4-46.3) fL RDW Coeff of Rylee (11.5-14.5) % Plt Count (130-400) K/uL MPV (7.4-10.4) fL Immature Gran % (Auto) % Neut % (Auto) % Lymph % (Auto) % [place] % (Auto) % Eos % (Auto) % Baso % (Auto) % Immature Gran # (Auto) (0.00-0.02) K/uL Neut # (Auto) (1.4-6.5) K/uL Lymph # (Auto) (1.2-3.4) K/uL [place] # (Auto) (0.11-0.59) K/uL Eos # (Auto) (0-0.5) K/uL Baso # (Auto) (0-0.2) K/uL VBG pH 7.13 L (7.36-7.41) Sodium 146 H (136-145) mmol/L Potassium 5.2 H (3.5-5.1) mmol/L Chloride 119 H (98-107) mmol/L Carbon Dioxide 7 L* (21-32) mmol/L Anion Gap 20.0 H (3-11) BUN 19 H (7-18) mg/dl Creatinine 1.37 H (0.6-1.2) mg/dl Est Cr Clr Drug Dosing 52.1 ml/min Est GFR ( Amer) 64.2 Est GFR (Non-Af Amer) 55.4 BUN/Creatinine Ratio 13.7 (10-20) Glucose 280 H (70-99) mg/dl POC Glucose 251 H (70-99) mg/dl Estimat Average Glucose mg/dl Hemoglobin A1c (4.5-5.6) % Calcium 8.0 L (8.5-10.1) mg/dl Phosphorus 1.2 L* D (2.5-4.9) mg/dl Magnesium 2.1 (1.8-2.4) mg/dl Total Bilirubin (0.2-1) mg/dl Direct Bilirubin (0-0.2) mg/dl AST (15-37) U/L ALT (12-78) U/L Alkaline Phosphatase (45-117) U/L Total Protein (6.4-8.2) gm/dl Albumin (3.4-5.0) gm/dl Nasal Screen MRSA (PCR) (Negative) 12/26/19 12/26/19 12/26/19 Range/Units 21:44 20:41 19:47 WBC (4.8-10.8) K/uL RBC (4.2-5.4) M/uL Hgb (12.0-16.0) g/dL Hct (37-47) % MCV (80-100) fL MCH (25-34) pg MCHC (32-36) g/dL RDW Std Deviation (36.4-46.3) fL RDW Coeff of Rylee (11.5-14.5) % Plt Count (130-400) K/uL MPV (7.4-10.4) fL Immature Gran % (Auto) % Neut % (Auto) % Lymph % (Auto) % [place] % (Auto) % Eos % (Auto) % Baso % (Auto) % Immature Gran # (Auto) (0.00-0.02) K/uL Neut # (Auto) (1.4-6.5) K/uL Lymph # (Auto) (1.2-3.4) K/uL [place] # (Auto) (0.11-0.59) K/uL Eos # (Auto) (0-0.5) K/uL Baso # (Auto) (0-0.2) K/uL VBG pH 7.07 L (7.36-7.41) Sodium (136-145) mmol/L Potassium (3.5-5.1) mmol/L Chloride (98-107) mmol/L Carbon Dioxide (21-32) mmol/L Anion Gap (3-11) BUN (7-18) mg/dl Creatinine (0.6-1.2) mg/dl Est Cr Clr Drug Dosing ml/min Est GFR ( Amer) Est GFR (Non-Af Amer) BUN/Creatinine Ratio (10-20) Glucose (70-99) mg/dl POC Glucose 235 H 177 H (70-99) mg/dl Estimat Average Glucose mg/dl Hemoglobin A1c (4.5-5.6) % Calcium (8.5-10.1) mg/dl Phosphorus (2.5-4.9) mg/dl Magnesium (1.8-2.4) mg/dl Total Bilirubin (0.2-1) mg/dl Direct Bilirubin (0-0.2) mg/dl AST (15-37) U/L ALT (12-78) U/L Alkaline Phosphatase (45-117) U/L Total Protein (6.4-8.2) gm/dl Albumin (3.4-5.0) gm/dl Nasal Screen MRSA (PCR) (Negative) 12/26/19 12/26/19 12/26/19 Range/Units 19:47 19:46 17:40 WBC (4.8-10.8) K/uL RBC (4.2-5.4) M/uL Hgb (12.0-16.0) g/dL Hct (37-47) % MCV (80-100) fL MCH (25-34) pg MCHC (32-36) g/dL RDW Std Deviation (36.4-46.3) fL RDW Coeff of Rylee (11.5-14.5) % Plt Count (130-400) K/uL MPV (7.4-10.4) fL Immature Gran % (Auto) % Neut % (Auto) % Lymph % (Auto) % [place] % (Auto) % Eos % (Auto) % Baso % (Auto) % Immature Gran # (Auto) (0.00-0.02) K/uL Neut # (Auto) (1.4-6.5) K/uL Lymph # (Auto) (1.2-3.4) K/uL [place] # (Auto) (0.11-0.59) K/uL Eos # (Auto) (0-0.5) K/uL Baso # (Auto) (0-0.2) K/uL VBG pH (7.36-7.41) Sodium 142 (136-145) mmol/L Potassium 4.7 (3.5-5.1) mmol/L Chloride 114 H (98-107) mmol/L Carbon Dioxide 5 L* (21-32) mmol/L Anion Gap 24.0 H (3-11) BUN 24 H (7-18) mg/dl Creatinine 1.36 H (0.6-1.2) mg/dl Est Cr Clr Drug Dosing 52.5 ml/min Est GFR ( Amer) 64.8 Est GFR (Non-Af Amer) 55.9 BUN/Creatinine Ratio 17.6 (10-20) Glucose 291 H (70-99) mg/dl POC Glucose 238 H (70-99) mg/dl Estimat Average Glucose mg/dl Hemoglobin A1c (4.5-5.6) % Calcium 8.4 L D (8.5-10.1) mg/dl Phosphorus 2.3 L D (2.5-4.9) mg/dl Magnesium 2.3 (1.8-2.4) mg/dl Total Bilirubin (0.2-1) mg/dl Direct Bilirubin (0-0.2) mg/dl AST (15-37) U/L ALT (12-78) U/L Alkaline Phosphatase (45-117) U/L Total Protein (6.4-8.2) gm/dl Albumin (3.4-5.0) gm/dl Nasal Screen MRSA (PCR) Negative (Negative) 12/26/19 Range/Units 13:48 WBC (4.8-10.8) K/uL RBC (4.2-5.4) M/uL Hgb (12.0-16.0) g/dL Hct (37-47) % MCV (80-100) fL MCH (25-34) pg MCHC (32-36) g/dL RDW Std Deviation (36.4-46.3) fL RDW Coeff of Rylee (11.5-14.5) % Plt Count (130-400) K/uL MPV (7.4-10.4) fL Immature Gran % (Auto) % Neut % (Auto) % Lymph % (Auto) % [place] % (Auto) % Eos % (Auto) % Baso % (Auto) % Immature Gran # (Auto) (0.00-0.02) K/uL Neut # (Auto) (1.4-6.5) K/uL Lymph # (Auto) (1.2-3.4) K/uL [place] # (Auto) (0.11-0.59) K/uL Eos # (Auto) (0-0.5) K/uL Baso # (Auto) (0-0.2) K/uL VBG pH (7.36-7.41) Sodium (136-145) mmol/L Potassium (3.5-5.1) mmol/L Chloride (98-107) mmol/L Carbon Dioxide (21-32) mmol/L Anion Gap (3-11) BUN (7-18) mg/dl Creatinine (0.6-1.2) mg/dl Est Cr Clr Drug Dosing ml/min Est GFR ( Amer) Est GFR (Non-Af Amer) BUN/Creatinine Ratio (10-20) Glucose (70-99) mg/dl POC Glucose (70-99) mg/dl Estimat Average Glucose 372 mg/dl Hemoglobin A1c 14.6 H (4.5-5.6) % Calcium (8.5-10.1) mg/dl Phosphorus (2.5-4.9) mg/dl Magnesium (1.8-2.4) mg/dl Total Bilirubin (0.2-1) mg/dl Direct Bilirubin (0-0.2) mg/dl AST (15-37) U/L ALT (12-78) U/L Alkaline Phosphatase (45-117) U/L Total Protein (6.4-8.2) gm/dl Albumin (3.4-5.0) gm/dl Nasal Screen MRSA (PCR) (Negative) PG Care Time/CCT Total # of Minutes Spent Total Time Spent with Patient: Total time spent is greater than 50% in coordination of care (as documented) at patient's floor/unit and/or counseling patient: Coding Level of Care Code 50239 Subseq Hosp Care Lvl 3 Diagnoses DKA (diabetic ketoacidoses) E10.10 Diabetes mellitus complication detail: without coma Diabetes mellitus type: type 1 Acute metabolic encephalopathy G93.41 Metabolic acidosis E87.2 Leukocytosis D72.823 Leukocytosis type: leukemoid reaction SOFI (acute kidney injury) N17.9 Abnormal TSH R79.89 Pulmonary stenosis I37.0 Hypophosphatemia E83.39 (1) DKA (diabetic ketoacidoses) Diabetes mellitus complication detail: without coma Diabetes mellitus type: type 1 Qualified Code(s): E10.10 - Type 1 diabetes mellitus with ketoacidosis without coma (2) Leukocytosis Leukocytosis type: leukemoid reaction Qualified Code(s): D72.823 - Leukemoid reaction
[2019-12-27 13:36] LABS: BUN Creatinine Ratio 9.4 (10-20); Calcium 8.6 mg/dl (8.5-10.1); Creatinine Clr Calc Pharmacy 47.6 ml/min; Est GFR (African American) 57.5; Est GFR (Non-African American) 49.6; Magnesium 2.1 mg/dl (1.8-2.4)
[2019-12-27 13:48] LABS: Phosphorus 1.4 mg/dl (2.5-4.9)
[2019-12-27 18:46] LABS: BUN Creatinine Ratio 9.6 (10-20); Calcium 8.8 mg/dl (8.5-10.1); Est GFR (African American) 62.5; Potassium 3.8 mmol/L (3.5-5.1)
[2019-12-27 18:57] LABS: Phosphorus 0.7 mg/dl (2.5-4.9)
[2019-12-27] MEDS ORDERED: POTASSIUM PHOSPHATE 30 MMOL in SODIUM CHLORIDE 0.9% 500 ML IV ONE (19:30)
[2019-12-27] MEDS: D5W AND 1/2NSS 1,000 ML IV SCH (19:37)
[2019-12-28 00:02] LABS: BUN Creatinine Ratio 9.6 (10-20); Calcium 8.4 mg/dl (8.5-10.1); Creatinine Clr Calc Pharmacy 52.1 ml/min; Est GFR (African American) 64.2; Est GFR (Non-African American) 55.4; Potassium 3.6 mmol/L (3.5-5.1)
[2019-12-28] MEDS ORDERED: POTASSIUM PHOS 3 MMOL/1 ML INFUSION IV STA ×2 (03:25→08:25)
[2019-12-28] MEDS ORDERED: POTASSIUM PHOSPHATE 21 MMOL in SODIUM CHLORIDE 0.9% 500 ML IV ONE (04:00)
[2019-12-28 04:30] LABS: Basophils # (auto) 0.01 K/uL (0-0.2); Basophils % (auto) 0.1 %; Eosinophils % (auto) 0.8 %; Hematocrit (blood only) 32.3 % (37-47); Hemoglobin 10.9 g/dL (12.0-16.0); Immature Granulocytes # (auto) 0.03 K/uL (0.00-0.02); Immature Granulocytes % (auto) 0.3 %; Lymphocytes % (auto) 15.2 %; Mean Corpuscular Hemoglobin 26.5 pg (25-34); Mean Corpuscular Hgb Conc 33.7 g/dL (32-36); Mean Corpuscular Volume 78.6 fL (80-100); Mean Platelet Volume 9.4 fL (7.4-10.4); Monocytes # (auto) 0.54 K/uL (0.11-0.59); Monocytes % (auto) 4.6 %; Neutrophils # (auto) 9.36 K/uL (1.4-6.5); Nucleated RBC # (auto) 0.05 K/uL (0-0); Nucleated RBC % (auto) 0.4 %; Platelet Count 178 K/uL (130-400); RDW Coefficient of Variation 13.4 % (11.5-14.5); RDW Standard Deviation 38.1 fL (36.4-46.3); Red Blood Count 4.11 M/uL (4.2-5.4); White Blood Count 11.84 K/uL (4.8-10.8)
[2019-12-28 05:09] LABS: Alanine Aminotransferase 21 U/L (12-78); Albumin Level 2.6 gm/dl (3.4-5.0); Aspartate Aminotransferase 35 U/L (15-37); BUN Creatinine Ratio 10.1 (10-20); Blood Urea Nitrogen 12 mg/dl (7-18); Calcium 8.2 mg/dl (8.5-10.1); Carbon Dioxide 15 mmol/L (21-32); Chloride 123 mmol/L (98-107); Est GFR (African American) 76.1; Est GFR (Non-African American) 65.7; Glucose 279 mg/dl (70-99); Magnesium 1.8 mg/dl (1.8-2.4); Potassium 3.2 mmol/L (3.5-5.1); Sodium 148 mmol/L (136-145)
[2019-12-28 05:35] LABS: Alkaline Phosphatase 93 U/L (45-117); Bilirubin Direct < 0.1 mg/dl (0-0.2); Bilirubin,Total 0.4 mg/dl (0.2-1); Phosphorus 1.4 mg/dl (2.5-4.9); Total Protein 5.9 gm/dl (6.4-8.2)
[2019-12-28] MEDS: D5W AND 1/2NSS 1,000 ML IV SCH ×2 (05:41→16:08)
[2019-12-28] MEDS: INSULIN ASPART 100 UNITS/ML 3 ML PEN SC SCH ×4 (07:16→22:36)
[2019-12-28] MEDS: ASPIRIN 81 MG ECTAB PO SCH (08:09)
[2019-12-28] MEDS ORDERED: MAGNESIUM SULFATE / D5W 1 GM/100 ML BAG IV ONE (08:26)
--- NOTE | 2019-12-28 08:27 | Hospitalist Progress Note ---
Date of Service December 28, 2019 Assessment & Plan (1) DKA (diabetic ketoacidoses): Pt is a 19 yo F PMHx DM1, pulmonary artery stenosis admitted for DKA DKA: - On admission BSG in 700s with gapped metabolic acidosis: pH 6.88, gap 29, bicarb 5. -Gap is closed now, metabolic acidosis is improving and HCO3 up to 15, continues with hypernatremia and hyperchloremia but both improving with changing to hypotonic IVFs -blood glucose much improved bt is labile -Follow serial labs, replace electrolytes as needed-needs IV Kphos today, IV Magnesium -diet is improved -Continue insulin gtt and BSG's as per protocol-plan to switch to home insulin pump in the next 24 hours - Infectious workup as below is negative. -hospice educator consult placed and recs appreciated -Patient's mother brought in the pump supplies and we can replace her insulin pump when preparing for discharge -Hemoglobin A1c severely uncontrolled at 14.6%-plans to get patient established with local endocrinology after discharge-nurse navigator consulted for this Hypernatremia-likely secondary to fluids-improving today down to 148 but with glucose correction more like 150 -continue D5 half-normal saline at 100 mL's per hour Hypophosphatemia -Replace with further IV potassium phosphate -Follow phosphorus levels again at 1400 today and in AM Leukocytosis: - Pt with leukocytosis to 43 on admission and is now improved to 11k; remains afebrile, SpO2 normal at this time, LP without signs of infection, UA negative for UTI, CXR without signs of pneumonia. - Unlikely to be infectious, possibly due to dehydration and stress response. Did receive 1 dose of ceftriaxone on admission but was not continued - Lactate elevated on arrival to 2.7. -Continue to follow BCx x2, UCx, and CSF cultures -all NGTD -No need for antibiotics at this time - Continue to follow daily CBC. SOFI: - Likely 2/2 dehydration/prerenal in the setting of DKA. Barrel Cutter now back to normal at 1.19 - Fluids as above. - follow BMP Acute metabolic encephalopathy: Significantly improved since admission, was previously barely responsive and not conversive on admission CT head negative LP performed without evidence of infection -Likely secondary to DKA -Continue treating DKA as above Abnormal TSH: -TSH is low could be secondary to acute illness -Recommend repeat thyroid function tests in 4 to 6 weeks when she is well Pulmonary stenosis: -Status post stenting of the pulmonary artery in childhood -Chest x-ray with mild prominence of the right hilum -Echocardiogram here is completely normal Code Status: FULL CODE DVT ppx: SCDs Dispo: remain in PCU status, will likely stay 1-2 more days (2) Acute metabolic encephalopathy: (3) Metabolic acidosis: (4) Leukocytosis: (5) SOFI (acute kidney injury): (6) Abnormal TSH: (7) Pulmonary stenosis: (8) Hypophosphatemia: Admission and Anticipated Discharge Date Admission Date: December 26, 2019 Subjective Feeling much improved today but not back to baseline. Still fatigued but improved. OOB to chair today and ate breakfast, appetite improved. Denies N/V, no abd pain, no CP or SOB. AG is closed and remains acidotic but slowly improving. Understands her DM is way out of control. Is agreeable to local Endocrinology appt after discharge Discussed case with Pharmacist managing her insulin-plan to replace insulin pump maybe later today or tomorrow Tele with Sinus tach Review of Systems Review of Systems: All systems reviewed & are unremarkable except as noted in HPI & below Physical Exam Constitutional: + thin; no acute distress and not lethargic (much more alert and conversational today, does remember me from yesterday) Eyes: + anicteric sclerae ENMT: external ear and nose normal, oropharynx normal Neck: trachea midline, no thyromegaly Respiratory: normal respiratory effort, lungs clear to auscultation Cardiovascular: RRR, no murmur, no edema Chest (Breasts): Chest: normal inspection of chest Gastrointestinal (Abdomen): normal bowel sounds, soft, nontender, no hepatosplenomegaly Musculoskeletal: Extremities: extremities normal to inspection; no cyanosis and no clubbing Skin: no rashes, warm and dry Neurologic: moves all extremities and awake; no focal motor deficits Lymphatic: no lymphedema Results & Data Results & Data ([facility]) Vital Signs (Past 12 Hours) Vital Signs Temp Pulse Resp BP Pulse Ox 12/28/19 05:39 37.1 C 99 H 27 H 120/73 99 12/28/19 04:39 103 H 26 H 126/70 100 12/28/19 03:39 104 H 16 112/79 100 12/28/19 02:39 100 H 27 H 119/69 99 12/28/19 01:38 105 H 24 119/89 100 12/28/19 00:39 107 H 24 113/61 99 12/27/19 23:38 100 H 24 126/69 100 12/27/19 22:39 105 H 27 H 116/74 100 12/27/19 21:38 107 H 26 H 122/71 99 12/27/19 20:38 36.7 C 109 H 24 111/62 100 Laboratory Results Labs reviewed Diagnostic Findings ECHO normal PG Care Time/CCT Total # of Minutes Spent Total Time Spent with Patient: Total time spent is greater than 50% in coordination of care (as documented) at patient's floor/unit and/or counseling patient: Coding Level of Care Code 54479 Subseq Hosp Care Lvl 3 Diagnoses DKA (diabetic ketoacidoses) E10.10 Diabetes mellitus complication detail: without coma Diabetes mellitus type: type 1 Acute metabolic encephalopathy G93.41 Metabolic acidosis E87.2 Leukocytosis D72.823 Leukocytosis type: leukemoid reaction SOFI (acute kidney injury) N17.9 Abnormal TSH R79.89 Pulmonary stenosis I37.0 Hypophosphatemia E83.39 (1) DKA (diabetic ketoacidoses) Diabetes mellitus complication detail: without coma Diabetes mellitus type: type 1 Qualified Code(s): E10.10 - Type 1 diabetes mellitus with ketoacidosis without coma (2) Leukocytosis Leukocytosis type: leukemoid reaction Qualified Code(s): D72.823 - Leukemoid reaction
[2019-12-28] MEDS ORDERED: POTASSIUM CHLORIDE 20 MEQ TABCR PO STA (08:28)
[2019-12-28] MEDS ORDERED: POTASSIUM PHOSPHATE 30 MMOL in SODIUM CHLORIDE 0.9% 500 ML IV ONE (08:45)
--- NOTE | 2019-12-28 10:35 | Pharmacy Report ---
Pharmacy Glycemic Short Note 2 - Date of Service December 28, 2019 - Glycemic Short BSG Results (Last 24 hours): 12/27/19 12/27/19 12/27/19 12:30 12:49 16:29 Glucose 171 H POC Glucose 184 H 109 H 12/27/19 12/27/19 12/27/19 16:45 17:03 17:19 Glucose POC Glucose 98 113 H 165 H 12/27/19 12/27/19 12/27/19 18:10 18:15 19:21 Glucose 229 H POC Glucose 219 H 201 H 12/27/19 12/27/19 12/27/19 20:16 21:16 22:17 Glucose POC Glucose 222 H 224 H 235 H 12/27/19 12/27/19 12/28/19 23:19 23:31 00:15 Glucose 267 H POC Glucose 248 H 246 H 12/28/19 12/28/19 12/28/19 01:14 03:08 04:13 Glucose 279 H POC Glucose 183 H 254 H 12/28/19 12/28/19 12/28/19 04:27 05:16 06:17 Glucose POC Glucose 275 H 242 H 226 H 12/28/19 12/28/19 07:12 09:10 Glucose POC Glucose 229 H 283 H OUTPATIENT ANTIDIABETIC REGIMEN: A1c = 14.6 % on 12/26/19 Humalog Tandem T-slim pump: * Basal (total 24.5 units/day) * 9926-4229: 1.2 units/hr * 0343-8713: 1.1 units/hr * 9715-2309: 1 units/hr * 4222-0570: 0.9 units/hr * Carb coverage * 1:7 3595-3577 * 1:6 1130-6659 * 1:7 0186-1760 * Correctional insulin * CF: 50 (2242-5767) with BSG target 120 * CF: 40 (2036-0646) with BSG target 100 The patient is currently receiving: * Insulin drip @ 1.4 units/hr ASSESSMENT: 12/27: * Patient has been on IV insulin infusion since time of admission for severe DKA (see 12/26 note for background) * Anion gap has closed, bicarb of 15, and BSGs improved * Will reduce goal range to 120-180 mg/dL * Patient remains on D5 1/2 NS @ 100 ml/hr * Repeat labs due at 1400 - will decide on transition off IV infusion at that time * Please refer to Mri Ct Tech note from 12/26 regarding assessment of ins ulin pump. * Discussed plan of care with Hospitalist; patient will be transitioned back to home insulin pump once bicarb is at goal. PLAN FOR INPATIENT GLYCEMIC CONTROL: * Continue IV insulin infusion * Decrease Goal range: 120 - 180 mg/dL * Bolus insulin * NovoLog per scale ACHS or Q6hrs while NPO * Goal Range: Low 120 mg/dL - High [180 mg/dL * Correction Factor: -- (not needed while on IV infusion) * No carb coverage per patient NPO (if diet ordered, will utilize CR= 6.5) PLAN FOR DISCHARGE: * A1c 14.6% (per CDE, patient attributes this to increased food intake without appropriate insulin coverage) * Resume Humalog insulin pump (Tandem T-slim) on discharge * Recommend prompt follow up with outpatient provider/Tele Marketing Executive on discharge for adjustment of insulin pump settings Thank you.
[2019-12-28 14:42] LABS: BUN Creatinine Ratio 8.6 (10-20); Calcium 8.4 mg/dl (8.5-10.1); Creatinine Clr Calc Pharmacy 65.6 ml/min; Est GFR (African American) 82.8; Est GFR (Non-African American) 71.4; Magnesium 2.4 mg/dl (1.8-2.4); Potassium 3.6 mmol/L (3.5-5.1)
[2019-12-28 15:06] LABS: Phosphorus 2.8 mg/dl (2.5-4.9)
[2019-12-28] MEDS ORDERED: ACETAMINOPHEN 500 MG TAB PO PRN (17:28)
[2019-12-28] MEDS: INSULIN REGULAR 250 UNITS in SODIUM CHLORIDE 0.9% 247.5 ML IV SCH (19:41)
[2019-12-29] MEDS ORDERED: INSULIN ASPART 100 UNITS/ML 3 ML PEN SC ONE (01:15)
[2019-12-29] MEDS: D5W AND 1/2NSS 1,000 ML IV SCH ×2 (02:10→08:24)
[2019-12-29 04:24] LABS: Basophils # (auto) 0.02 K/uL (0-0.2); Basophils % (auto) 0.2 %; Eosinophils # (auto) 0.15 K/uL (0-0.5); Eosinophils % (auto) 1.4 %; Hemoglobin 10.2 g/dL (12.0-16.0); Immature Granulocytes # (auto) 0.02 K/uL (0.00-0.02); Immature Granulocytes % (auto) 0.2 %; Lymphocytes # (auto) 3.84 K/uL (1.2-3.4); Lymphocytes % (auto) 35.9 %; Mean Corpuscular Hgb Conc 32.9 g/dL (32-36); Mean Corpuscular Volume 79.1 fL (80-100); Mean Platelet Volume 9.3 fL (7.4-10.4); Monocytes # (auto) 0.14 K/uL (0.11-0.59); Monocytes % (auto) 1.3 %; Neutrophils # (auto) 6.53 K/uL (1.4-6.5); Platelet Count 166 K/uL (130-400); RDW Coefficient of Variation 13.7 % (11.5-14.5); RDW Standard Deviation 39.4 fL (36.4-46.3); Red Blood Count 3.92 M/uL (4.2-5.4)
[2019-12-29 04:41] LABS: Albumin Level 2.3 gm/dl (3.4-5.0); BUN Creatinine Ratio 7.2 (10-20); Bilirubin Direct < 0.1 mg/dl (0-0.2); Blood Urea Nitrogen 6 mg/dl (7-18); Carbon Dioxide 18 mmol/L (21-32); Chloride 119 mmol/L (98-107); Creatinine Clr Calc Pharmacy 84.7 ml/min; Est GFR (African American) 112.7; Est GFR (Non-African American) 97.3; Glucose 266 mg/dl (70-99); Magnesium 2.1 mg/dl (1.8-2.4); Potassium 3.2 mmol/L (3.5-5.1); Sodium 147 mmol/L (136-145)
[2019-12-29 04:53] LABS: Alanine Aminotransferase 19 U/L (12-78); Alkaline Phosphatase 82 U/L (45-117); Aspartate Aminotransferase 22 U/L (15-37); Bilirubin,Total 0.3 mg/dl (0.2-1); Phosphorus 1.9 mg/dl (2.5-4.9); Total Protein 5.7 gm/dl (6.4-8.2)
[2019-12-29] MEDS: ASPIRIN 81 MG ECTAB PO SCH (07:40)
[2019-12-29] MEDS ORDERED: POTASSIUM PHOS 3 MMOL/1 ML INFUSION IV STA (08:02)
--- NOTE | 2019-12-29 08:06 | Hospitalist Progress Note ---
Date of Service December 29, 2019 Assessment & Plan (1) DKA (diabetic ketoacidoses): Pt is a 19 yo F PMHx DM1, pulmonary artery stenosis status post stent, admitted for DKA likely secondary to malfunction of insulin pump in the setting of uncontrolled diabetes with hemoglobin A1c of 14.6% DKA: - On admission BSG in 700s with gapped metabolic acidosis: pH 6.88, gap 29, bicarb 5. -Gap remains closed, metabolic acidosis is finally resolved with HCO3 up to 22, continues with hypernatremia which is now very mild -Change fluids today to half-normal saline +20 mEq KCl at increased dose of 125 mL's per hour -blood glucose labile but improved throughout the day after making insulin drip constant basal rate at 1.4 units/h, added NovoLog every 4 hours -Follow BMP and phosphorus twice daily, replace electrolytes as needed-gave IV Kphos and p.o. potassium today -diet is improved -Continue insulin gtt and BSG's as per protocol-plan to switch to home insulin pump likely tomorrow - Infectious workup as below is negative. -leak inspector consult placed and recs appreciated -Patient's mother brought in the pump supplies and we can replace her insulin pump when preparing for discharge -Hemoglobin A1c severely uncontrolled at 14.6%-plans to get patient established with local endocrinology after discharge-nurse navigator consulted for this Hypernatremia-likely secondary to fluids-improving today down to 147 but with glucose correction more like 150 -continue half-normal saline and increased to 125 mL's per hour Hypophosphatemia -Replaced with further IV potassium phosphate -Follow phosphorus levels in AM Leukocytosis: - Pt with leukocytosis to 43 on admission and is now improved to 10k; remains afebrile, SpO2 normal at this time, LP without signs of infection, UA negative for UTI, CXR without signs of pneumonia both on admission and again today. - Unlikely to be infectious, possibly due to dehydration and stress response. Did receive 1 dose of ceftriaxone on admission but was not continued - Lactate elevated on arrival to 2.7. -Continue to follow BCx x2, UCx, and CSF cultures -all NGTD -No need for antibiotics at this time - Continue to follow daily CBC. -Mother questioned if patient should be tested for [id number] has had no exposure and has been isolating herself in her apartment for 2 months. She has had no fevers at all and is improving Pleural effusions-trace bilateral, likely secondary to massive amounts of volume resuscitation and electrolyte replacement being given -With mild cough -Not hypoxic, no respiratory distress at all -Follow SOFI: - Likely 2/2 dehydration/prerenal in the setting of DKA. Unit Supervisor now back to normal at 0.8 - Fluids have been given - follow BMP Acute metabolic encephalopathy: was previously barely responsive and not conversive on admission, now encephalopathy resolved CT head negative LP performed without evidence of infection -Likely secondary to DKA -Continue treating DKA as above Abnormal TSH: -TSH is low could be secondary to acute illness -Recommend repeat thyroid function tests in 4 to 6 weeks when she is well Pulmonary stenosis: -Status post stenting of the pulmonary artery in childhood -Chest x-ray with mild prominence of the right hilum -Echocardiogram here is completely normal Code Status: FULL CODE DVT ppx: SCDs Dispo: remain in PCU status, hopeful for discharge to home in the next 1 to 2 days Her care was discussed with her mother on the phone who appreciates a daily phone call update. (2) Acute metabolic encephalopathy: (3) Metabolic acidosis: (4) Leukocytosis: (5) SOFI (acute kidney injury): (6) Abnormal TSH: (7) Pulmonary stenosis: (8) Hypophosphatemia: Admission and Anticipated Discharge Date Admission Date: December 26, 2019 Subjective Patient feeling better today. She is eating more. Having a bit of a cough. Remains afebrile. No nausea or vomiting. No bowel movement. I discussed her care at her request with her mom on the phone. Review of Systems Review of Systems: All systems reviewed & are unremarkable except as noted in HPI & below Physical Exam Constitutional: WD/WN, vitals as above + thin; no acute distress and not ill appearing Eyes: + anicteric sclerae ENMT: external ear and nose normal, oropharynx normal Neck: trachea midline, no thyromegaly Respiratory: normal respiratory effort, lungs clear to auscultation Cardiovascular: RRR, no murmur, no edema Chest (Breasts): Chest: normal inspection of chest Gastrointestinal (Abdomen): normal bowel sounds, soft, nontender, no hepatosplenomegaly Musculoskeletal: Extremities: extremities normal to inspection; no cyanosis and no clubbing Skin: no rashes, warm and dry Neurologic: moves all extremities and awake; no focal motor deficits Lymphatic: no lymphedema Results & Data Results & Data ([facility]) Vital Signs (Past 12 Hours) Vital Signs Temp Pulse Pulse Resp BP BP Pulse Ox 12/29/19 04:07 36.8 C 94 H 20 123/68 98 12/29/19 02:13 36.9 C 92 H 22 123/74 99 12/29/19 00:00 86 12/28/19 20:10 36.7 C 93 H 21 116/56 L 99 Laboratory Results Labs reviewed Diagnostic Findings Chest x-ray image personally reviewed by me-trace bilateral pleural effusions PG Care Time/CCT Total # of Minutes Spent Total Time Spent with Patient: Total time spent is greater than 50% in coordination of care (as documented) at patient's floor/unit and/or counseling patient: Coding Level of Care Code 73357 Subseq Hosp Care Lvl 3 Diagnoses DKA (diabetic ketoacidoses) E10.10 Diabetes mellitus complication detail: without coma Diabetes mellitus type: type 1 Acute metabolic encephalopathy G93.41 Metabolic acidosis E87.2 Leukocytosis D72.823 Leukocytosis type: leukemoid reaction SOFI (acute kidney injury) N17.9 Abnormal TSH R79.89 Pulmonary stenosis I37.0 Hypophosphatemia E83.39 (1) DKA (diabetic ketoacidoses) Diabetes mellitus complication detail: without coma Diabetes mellitus type: type 1 Qualified Code(s): E10.10 - Type 1 diabetes mellitus with ketoacidosis without coma (2) Leukocytosis Leukocytosis type: leukemoid reaction Qualified Code(s): D72.823 - Leukemoid reaction
[2019-12-29] MEDS ORDERED: POTASSIUM CHLORIDE 20 MEQ TABCR PO STA ×2 (08:11→17:43)
[2019-12-29] MEDS: INSULIN ASPART 100 UNITS/ML 3 ML PEN SC SCH ×4 (08:24→20:27)
[2019-12-29] MEDS ORDERED: POTASSIUM PHOSPHATE 24 MMOL in SODIUM CHLORIDE 0.9% 500 ML IV ONE (08:30)
[2019-12-29] MEDS: SODIUM CHLOR 0.45% + 20MEQ KCL 20 MEQ/1,000 ML BAG IV SCH ×2 (12:21→20:15)
--- NOTE | 2019-12-29 14:56 | Pharmacy Report ---
Pharmacy Glycemic Short Note 2 - Date of Service December 29, 2019 - Glycemic Short BSG Results (Last 24 hours): 12/28/19 12/28/19 12/28/19 14:17 15:40 16:01 Glucose 239 H POC Glucose 119 H 120 H 12/28/19 12/28/19 12/28/19 17:07 18:13 19:02 Glucose POC Glucose 127 H 119 H 119 H 12/28/19 12/28/19 12/28/19 20:06 21:02 22:00 Glucose POC Glucose 155 H 130 H 100 H 12/28/19 12/29/19 12/29/19 23:04 01:09 01:11 Glucose POC Glucose 182 H 321 H* 329 H* 12/29/19 12/29/19 12/29/19 01:58 04:06 04:15 Glucose 266 H POC Glucose 316 H* 231 H 12/29/19 12/29/19 12/29/19 06:02 08:12 10:05 Glucose POC Glucose 230 H 228 H 196 H 12/29/19 12/29/19 11:47 14:05 Glucose POC Glucose 229 H 201 H OUTPATIENT ANTIDIABETIC REGIMEN: A1c = 14.6 % on 12/26/19 Humalog Tandem T-slim pump: * Basal (total 24.5 units/day) * 7223-7329: 1.2 units/hr * 4958-0929: 1.1 units/hr * 3087-8748: 1 units/hr * 9477-3033: 0.9 units/hr * Carb coverage * 1:7 1424-9471 * 1:6 4777-2428 * 1:7 2797-9279 * Correctional insulin * CF: 50 (0045-5354) with BSG target 120 * CF: 40 (1166-6143) with BSG target 100 The patient is currently receiving: * Insulin drip @ 1.4 units/hr ASSESSMENT: 12/28: * Glycemic control and acute metabolic encephalopathy significantly improved since admission * Insulin requirements on IV insulin infusion continue to fluctuate despite little to no oral intake and no change in risk factors for insulin resistance * On AM labs: anion gap=10, bicarb= 18 (improving but remains below normal range) * Will continue IV insulin infusion at set rate to cover patients basal insulin needs (adjustments will not be made per the [facility] insulin infusion calculator) * Start Novolog coverage with correction factor and carb ratio, which will be based on home values 12/27: * Patient has been on IV insulin infusion since time of admission for severe DKA (see 12/26 note for background) * Anion gap has closed, bicarb of 15, and BSGs improved * Will reduce goal range to 120-180 mg/dL * Patient remains on D5 1/2 NS @ 100 ml/hr * Repeat labs due at 1400 - will decide on transition off IV infusion at that time * Please refer to Greenhouse Grower note from 12/26 regarding assessment of insulin pump. * Discussed plan of care with Hospitalist; patient will be transitioned back to home insulin pump once bicarb is at goal. PLAN FOR INPATIENT GLYCEMIC CONTROL: * Continue IV insulin infusion to provide BASAL needs only * Current rate: 1.4 units/hr (slightly greater than home basal rates on pump) * Goal range: 120 - 180 mg/dL * BSG check q2hour and adjustment per Glycemic RPh * Bolus insulin * NovoLog per scale ACHS or Q6hrs while NPO * Goal Range: Low 120 mg/dL - High 160 mg/dL * Correction Factor: 35 mg/dL/unit * Carb ratio: 1 unit for every 6.5 grams CHO PLAN FOR DISCHARGE: * A1c 14.6% (per CDE, patient attributes this to increased food intake without appropriate insulin coverage) * Resume Humalog insulin pump (Tandem T-slim) on discharge * Recommend prompt follow up with outpatient provider/Server Cashier on discharge for adjustment of insulin pump settings Thank you.
[2019-12-29 16:16] LABS: BUN Creatinine Ratio 7.6 (10-20); Calcium 8.4 mg/dl (8.5-10.1); Creatinine Clr Calc Pharmacy 94.2 ml/min; Est GFR (Non-African American) 106.1; Potassium 3.3 mmol/L (3.5-5.1)
--- NOTE | 2019-12-29 17:01 | XRay Report ---
XR chest 2V PA/lateral CLINICAL HISTORY: Cough. COMPARISON STUDY: Chest radiograph December 26, 2019. FINDINGS: Lung volumes are normal. Lungs are clear. There is no pneumothorax. There is made of trace bilateral pleural effusions. Cardiac size is normal. Mediastinal contours are normal. There is no meena dence for pulmonary edema. Incidental note is made of a small stent projects over the mediastinum. IMPRESSION: 1. No consolidation to suggest pneumonia. 2. Trace bilateral pleural effusions. ACT 112: Negative or not required by law. Electronically signed by: Beto Lopez M.D. 12/29/2019 5:00 PM
[2019-12-29 18:07] LABS: Phosphorus 2.9 mg/dl (2.5-4.9)
[2019-12-29] MEDS: INSULIN REGULAR 250 UNITS in SODIUM CHLORIDE 0.9% 247.5 ML IV SCH (22:11)
[2019-12-30] MEDS: INSULIN ASPART 100 UNITS/ML 3 ML PEN SC SCH ×3 (00:15→08:57)
[2019-12-30] MEDS: SODIUM CHLOR 0.45% + 20MEQ KCL 20 MEQ/1,000 ML BAG IV SCH ×3 (04:11→21:50)
[2019-12-30 05:14] LABS: BUN Creatinine Ratio 6.4 (10-20); Blood Urea Nitrogen 4 mg/dl (7-18); Calcium 8.1 mg/dl (8.5-10.1); Carbon Dioxide 21 mmol/L (21-32); Chloride 118 mmol/L (98-107); Creatinine Clr Calc Pharmacy 127.7 ml/min; Est GFR (African American) > 150.0; Est GFR (Non-African American) 131.9; Glucose 111 mg/dl (70-99); Magnesium 1.9 mg/dl (1.8-2.4); Potassium 3.7 mmol/L (3.5-5.1); Sodium 145 mmol/L (136-145)
[2019-12-30 05:15] LABS: Phosphorus 2.7 mg/dl (2.5-4.9)
[2019-12-30] MEDS: ASPIRIN 81 MG ECTAB PO SCH (08:18)
[2019-12-30] MEDS ORDERED: INSULIN HUMAN LISPRO (humaLOG) 100 UNITS/ML VIAL SC PRN (10:00)
--- NOTE | 2019-12-30 10:03 | Hospitalist Progress Note ---
Date of Service December 30, 2019 Assessment & Plan (1) DKA (diabetic ketoacidoses): Pt is a 19 yo F PMHx DM1, pulmonary artery stenosis status post stent, admitted for DKA likely secondary to malfunction of insulin pump in the setting of uncontrolled diabetes with hemoglobin A1c of 14.6% DKA: - On admission BSG in 700s with gapped metabolic acidosis: pH 6.88, gap 29, bicarb 5. -Gap remains closed, metabolic acidosis is resolved on 12/29 -Change fluids today to half-normal saline +20 mEq KCl at increased dose of 125 mL's per hour -blood glucose labile but improved throughout the day after making insulin drip constant basal rate at 1.4 units/h, added NovoLog every 4 hours - discussed with pharmacy, change insulin drip to her insulin pump, will watch for 24 hours in the hospital to make sure she is stable -diet is improving slowly - Infectious workup as below is negative. -nurses educator consult placed and recs appreciated, long discussion held with patient -Hemoglobin A1c severely uncontrolled at 14.6% patient admits that she does not bolus insulin with meals she does not keep close watch over her sugars she has appt with endocrinology on 01/21 here with [facility] Hypernatremia-likely secondary to fluids- resolved with 1/2 NSS Hypophosphatemia -Replaced with further IV potassium phosphate stable today Leukocytosis: - Pt with leukocytosis to 43 on admission and is now improved to normal; remains afebrile, SpO2 normal at this time, LP without signs of infection, UA negative for UTI, CXR without signs of pneumonia both on admission and again on 12/28 - Unlikely to be infectious, possibly due to dehydration and stress response. Did receive 1 dose of ceftriaxone on admission but was not continued - Lactate elevated on arrival to 2.7. -Continue to follow BCx x2, UCx, and CSF cultures -all NGTD -No need for antibiotics at this time Pleural effusions-trace bilateral, likely secondary to massive amounts of volume resuscitation and electrolyte replacement being given -With mild cough -Not hypoxic, no respiratory distress at all -Follow SOFI: - Likely 2/2 dehydration/prerenal in the setting of DKA. [place] now back to normal for over 24 hours - Fluids have been given - follow BMP Acute metabolic encephalopathy: was previously barely responsive and not conversive on admission, now encephalopathy resolved CT head negative LP performed without evidence of infection -Likely secondary to DKA -Continue treating DKA as above Abnormal TSH: -TSH is low could be secondary to acute illness -Recommend repeat thyroid function tests in 4 to 6 weeks when she is well Pulmonary stenosis: -Status post stenting of the pulmonary artery in childhood -Chest x-ray with mild prominence of the right hilum -Echocardiogram here is completely normal Code Status: FULL CODE DVT ppx: SCDs Dispo: remain in PCU status, plan to d/c home on 12/29 (2) Acute metabolic encephalopathy: (3) Metabolic acidosis: (4) Leukocytosis: (5) SOFI (acute kidney injury): (6) Abnormal TSH: (7) Pulmonary stenosis: (8) Hypophosphatemia: Admission and Anticipated Discharge Date Admission Date: December 26, 2019 Subjective patient reports her appetite is still diminished, no nausea or vomiting, no abdominal pain no fever, no dyspnea, no weakness, sleeping well reviewed chart, reviewed labs this morning, sugars stable, electrolytes stable, normal renal function d/w pharmacy, will change from insulin drip to pump, want to watch her for 24 hours in the hospital on pump per discussion with DM educator, the patient wasn't always covering her carbs and there was issue with insulin pump site discussed going home tomorrow, patient in agreement Review of Systems Review of Systems: All systems reviewed & are unremarkable except as noted in HPI & below Constitutional: + fatigue; no fever, no chills, no sweats and no weakness Respiratory: no cough and no dyspnea Cardiovascular: no chest pain, no palpitations, no syncope and no edema Gastrointestinal: + early satiety (poor appetite); no abdominal pain, no nausea, no vomiting, no constipation and no diarrhea/loose stools Physical Exam Constitutional: WD/WN, vitals as above Eyes: PERRL, conjunctivae normal, anicteric sclerae ENMT: external ear and nose normal, oropharynx normal Neck: trachea midline, no thyromegaly Respiratory: normal respiratory effort, lungs clear to auscultation Cardiovascular: RRR, no murmur, no edema Gastrointestinal (Abdomen): normal bowel sounds, soft, nontender, no hepatosplenomegaly Musculoskeletal: no cyanosis or clubbing, extremities motor strength 5/5 Skin: no rashes, warm and dry Neurologic: patellar DTR's 2+ bilat, sensation intact and PERRL, EOMI, accommodation nl, no face palsy, no dysarthria Psychiatric: A+Ox3, euthymic affect Lymphatic: no cervical or axillary lymphadenopathy Results & Data Results & Data ([facility]) Vital Signs (Past 12 Hours) Vital Signs Temp Pulse Pulse Resp BP BP Pulse Ox 12/30/19 08:32 87 17 127/76 100 12/30/19 08:30 91 H 18 12/30/19 08:00 87 0 L 12/30/19 07:30 88 0 L 12/30/19 07:00 81 17 12/30/19 06:45 86 21 12/30/19 04:00 36.8 C 93 H 19 120/64 99 12/30/19 00:41 36.8 C 100 H 22 125/86 100 Laboratory Results Laboratory Results - last 24 hr 12/29/19 12/29/19 12/29/19 10:05 11:47 14:05 Sodium Potassium Chloride Carbon Dioxide Anion Gap BUN Creatinine Est Cr Clr Drug Dosing Est GFR ( Amer) Est GFR (Non-Af Amer) BUN/Creatinine Ratio Glucose POC Glucose 196 H 229 H 201 H Calcium Phosphorus Magnesium 12/29/19 12/29/19 12/29/19 15:52 16:18 17:52 Sodium 145 Potassium 3.3 L Chloride 115 H Carbon Dioxide 22 Anion Gap 8.0 BUN 6 L Creatinine 0.80 Est Cr Clr Drug Dosing 94.2 Est GFR ( Amer) 123.0 Est GFR (Non-Af Amer) 106.1 BUN/Creatinine Ratio 7.6 L Glucose 161 H POC Glucose 155 H 134 H Calcium 8.4 L Phosphorus 2.9 D Magnesium 12/29/19 12/29/19 12/30/19 19:57 22:02 00:06 Sodium Potassium Chloride Carbon Dioxide Anion Gap BUN Creatinine Est Cr Clr Drug Dosing Est GFR ( Amer) Est GFR (Non-Af Amer) BUN/Creatinine Ratio Glucose POC Glucose 231 H 149 H 77 Calcium Phosphorus Magnesium 12/30/19 12/30/19 12/30/19 01:07 02:02 03:59 Sodium Potassium Chloride Carbon Dioxide Anion Gap BUN Creatinine Est Cr Clr Drug Dosing Est GFR ( Amer) Est GFR (Non-Af Amer) BUN/Creatinine Ratio Glucose POC Glucose 152 H 130 H 112 H Calcium Phosphorus Magnesium 12/30/19 12/30/19 12/30/19 04:28 05:56 08:16 Sodium 145 Potassium 3.7 Chloride 118 H Carbon Dioxide 21 Anion Gap 6.0 BUN 4 L Creatinine 0.59 L Est Cr Clr Drug Dosing 127.7 Est GFR ( Amer) > 150.0 Est GFR (Non-Af Amer) 131.9 BUN/Creatinine Ratio 6.4 L Glucose 111 H POC Glucose 118 H 109 H Calcium 8.1 L Phosphorus 2.7 Magnesium 1.9 Medications Administered Current Inpatient Medications Acetaminophen (Tylenol) 1,000 mg PO Q8 PRN PRN Reason: Headache Stop: 01/27/20 17:27 Aspirin (Ecotrin Ectab) 81 mg PO QAM THADDEUS Stop: 01/27/20 08:59 Last Admin: 12/30/19 08:18 Dose: 81 mg Documented by: Dextrose (Dextrose 50%) 25 - 50 ml IV UD PRN; Protocol PRN Reason: Hypoglycemia Protocol Stop: 01/25/20 13:52 Glucagon (Glucagen) 1 mg SQ UD PRN; Protocol PRN Reason: Hypoglycemia Protocol Stop: 01/25/20 13:52 Glucose (Dex4 Glucose) 4 - 8 tabs PO UD PRN; Protocol PRN Reason: Hypoglycemia Protocol Stop: 01/25/20 13:52 Glucose (Glucose 40%) 15 - 30 gm PO UD PRN; Protocol PRN Reason: Hypoglycemia Protocol Stop: 01/25/20 13:52 Insulin Human Regular 250 (units/ Sodium Chloride) 250 mls @ 0.9 mls/hr IV .Q24H THADDEUS; Protocol Stop: 01/25/20 13:59 Last Titration: 12/30/19 08:27 Dose: 0.9 units/hr, 0.9 mls/hr Documented by: Potassium Chloride/Sodium Chloride (1/2 Nss + 20meq Kcl 1000ml) 20 meq in 1,000 mls @ 125 mls/hr IV .Q8H THADDEUS Stop: 01/28/20 12:29 Last Admin: 12/30/19 04:11 Dose: 125 mls/hr Documented by: Insulin Human Lispro (Humalog Insulin Pump) 1 ea N/A ACHS [facility]; Protocol Stop: 01/29/20 11:29 Insulin Human Lispro (Humalog) 0 units SC PRN PRN PRN Reason: REFILL Stop: 01/29/20 09:59 Miscellaneous (Carbohydrates For Hypoglycemia) 15 - 30 gm PO UD PRN PRN Reason: Hypoglycemia Protocol Stop: 01/25/20 13:52 Miscellaneous Information (Consult Glycemic Management Pharmacy) 1 ea N/A UD PRN PRN Reason: Consult Stop: 01/25/20 18:46 PG Care Time/CCT Total # of Minutes Spent Total Time Spent with Patient: Total time spent is greater than 50% in coordination of care (as documented) at patient's floor/unit and/or counseling patient: Coding Level of Care Code 79856 Subseq Hosp Care Lvl 3 Diagnoses DKA (diabetic ketoacidoses) E10.10 Diabetes mellitus complication detail: without coma Diabetes mellitus type: type 1 Acute metabolic encephalopathy G93.41 Metabolic acidosis E87.2 Leukocytosis D72.823 Leukocytosis type: leukemoid reaction SOFI (acute kidney injury) N17.9 Abnormal TSH R79.89 Pulmonary stenosis I37.0 Hypophosphatemia E83.39 (1) DKA (diabetic ketoacidoses) Diabetes mellitus complication detail: without coma Diabetes mellitus type: type 1 Qualified Code(s): E10.10 - Type 1 diabetes mellitus with ketoacidosis without coma (2) Leukocytosis Leukocytosis type: leukemoid reaction Qualified Code(s): D72.823 - Leukemoid reaction
--- NOTE | 2019-12-30 13:34 | Pharmacy Report ---
Pharmacy Glycemic Short Note 2 - Date of Service December 30, 2019 - Glycemic Short BSG Results (Last 24 hours): 12/29/19 12/29/19 12/29/19 14:05 15:52 16:18 Glucose 161 H POC Glucose 201 H 155 H 12/29/19 12/29/19 12/29/19 17:52 19:57 22:02 Glucose POC Glucose 134 H 231 H 149 H 12/30/19 12/30/19 12/30/19 00:06 01:07 02:02 Glucose POC Glucose 77 152 H 130 H 12/30/19 12/30/19 12/30/19 03:59 04:28 05:56 Glucose 111 H POC Glucose 112 H 118 H 12/30/19 12/30/19 12/30/19 08:16 10:00 10:02 Glucose POC Glucose 109 H 235 H 195 H 12/30/19 12/30/19 11:56 13:00 Glucose POC Glucose 153 H 232 H OUTPATIENT ANTIDIABETIC REGIMEN: A1c = 14.6 % on 12/26/19 Humalog Tandem T-slim pump: * Basal (total 24.5 units/day) * 5654-7934: 1.2 units/hr * 4074-5406: 1.1 units/hr * 3048-5934: 1 units/hr * 3700-4517: 0.9 units/hr * Carb coverage * 1:7 3722-1740 * 1:6 3149-5844 * 1:7 9705-3141 * Correctional insulin * CF: 50 (3389-0316) with BSG target 120 * CF: 40 (0989-5050) with BSG target 100 ASSESSMENT: 12/29: * Glycemic control at goal. Mental status at baseline and patient tolerating an oral diet. * IV insulin infusion rates ranged from 0 - 1.4 units/hr (~27 units over 24 hours). This is similar to home basal needs of 24.5 units per day. * Will transition pt back to insulin pump today so that we can monitor BSGs w elie on pump prior to discharge. 12/28: * Glycemic control and acute metabolic encephalopathy significantly improved since admission * Insulin requirements on IV insulin infusion continue to fluctuate despite little to no oral intake and no change in risk factors for insulin resistance * On AM labs: anion gap=10, bicarb= 18 (improving but remains below normal range) * Will continue IV insulin infusion at set rate to cover patients basal insulin needs (adjustments will not be made per the [facility] insulin infusion calculator) * Start Novolog coverage with correction factor and carb ratio, which will be based on home values 12/27: * Patient has been on IV insulin infusion since time of admission for severe DKA (see 12/26 note for background) * Anion gap has closed, bicarb of 15, and BSGs improved * Will reduce goal range to 120-180 mg/dL * Patient remains on D5 1/2 NS @ 100 ml/hr * Repeat labs due at 1400 - will decide on transition off IV infusion at that time * Please refer to [employer] Vault Supervisor note from 12/26 regarding assessment of insulin pump. * Discussed plan of care with Hospitalist; patient will be transitioned back to home insulin pump once bicarb is at goal. PLAN FOR INPATIENT GLYCEMIC CONTROL: * Resume humalog insulin pump at home settings (see above) * overlap IV insulin infusion x 1 hour, then d/c IV infusion * Pt is to manage BSGs with insulin pump per outpatient settings. * RN will have patient read and sign agreement CF [id number] Insulin Pump Therapy Patient Agreement. * RN will provide and explain form [id number] Flowsheet for Patient * Patient will document their insulin dose given on NS-824 which is kept at the bedside, available to caregivers upon request, and which becomes part of the permanent medical record. PLAN FOR DISCHARGE: * A1c 14.6% (per CDE, patient attributes this to increased food intake without appropriate insulin coverage) * Resume Humalog insulin pump (Tandem T-slim) on discharge * Recommend prompt follow up with outpatient provider/Director It Project on discharge for adjustment of insulin pump settings Thank you.
[2019-12-31] MEDS: SODIUM CHLOR 0.45% + 20MEQ KCL 20 MEQ/1,000 ML BAG IV SCH ×2 (05:25→13:11)
[2019-12-31] MEDS: ASPIRIN 81 MG ECTAB PO SCH (07:54)
[2019-12-31 08:57] LABS: Calcium 9.4 mg/dl (8.5-10.1); Creatinine Clr Calc Pharmacy 115.4 ml/min; Est GFR (African American) 146.7; Est GFR (Non-African American) 126.5; Magnesium 1.9 mg/dl (1.8-2.4); Phosphorus 3.3 mg/dl (2.5-4.9); Potassium 3.9 mmol/L (3.5-5.1)
--- NOTE | 2019-12-31 16:39 | Discharge Summary ---
Date of Service December 31, 2019 Admission HPI Per Admitting Provider 19 yo F PMHx significant for DM1 on insulin pump, pulmonary artery stenosis per mother who presents via EMS with tachycardia, history reported for some things by the patient on arrival, but predominantly by them and patient's mother over the phone. Patient on arrival able to [id number] some questions. When EMS arrived she appeared to be in narrow complex tachycardia briefly to the 170s but "broke" prior to receiving adenosine, returning to tachycardia to 140. Per ER staff report was that the patient was feeling unwell last evening, with some difficulty breathing and heart racing sensation, but no nausea or vomiting, no diarrhea, no recent illnesses, no cough or fevers. Per the patient's mother she called EMS to her daughter's residence after becoming informed that Conchis's insulin pump seemed to not be working correctly, and then after receiving some texts that were "off". Mother reports a history for the patient of pulmonary stenosis. No prior history of DKA. In ED pt had ABG showing pH 6.88, extremely low bicarb, BSG in 700s, gap 29, WBC count in 40s. CXR negative for infection, UA no nitrites no bacteria. CSF without bacteria or signs of infection. UCx, CSF Cx, and BCx x2 ordered, insulin gtt and 3L NSS given; hospitalist team consulted for admission. Principal Diagnosis Diabetic ketoacidosis Discharge Exam Constitutional WD/WN, vitals as above Eyes PERRL, conjunctivae normal, anicteric sclerae ENMT external ear and nose normal, oropharynx normal Neck trachea midline, no thyromegaly Respiratory normal respiratory effort, lungs clear to auscultation Cardiovascular RRR, no murmur, no edema Gastrointestinal (Abdomen) normal bowel sounds, soft, nontender, no hepatosplenomegaly Musculoskeletal no cyanosis or clubbing, extremities motor strength 5/5 Skin no rashes, warm and dry Neurologic patellar DTR's 2+ bilat, sensation intact and PERRL, EOMI, accommodation nl, no face palsy, no dysarthria Psychiatric A+Ox3, euthymic affect Lymphatic no cervical or axillary lymphadenopathy Discharge Data Allergies Allergy/AdvReac Type Severity Reaction Status Date / Time cefuroxime [From Ceftin] Allergy Intermediate Hives Unverified 12/26/19 16:47 pineapple Allergy Intermediate Lip and Unverified 12/26/19 16:47 Tongue Swelling Consultations 12/26/19 14:24 ED Decision to Admit Stat 12/26/19 17:54 Consult Case Management - Discharge Planning Routine Consult Behavioral Health Care Manager Routine Ordered Studies 12/26/19 14:20 CT head/brain wo con Stat Hospital Course (1) DKA (diabetic ketoacidoses): Pt is a 19 yo F PMHx DM1, pulmonary artery stenosis status post stent, admitted for DKA likely secondary to malfunction of insulin pump in the setting of uncontrolled diabetes with hemoglobin A1c of 14.6% DKA: - On admission BSG in 700s with gapped metabolic acidosis: pH 6.88, gap 29, bicarb 5. -Gap remains closed, metabolic acidosis is resolved on 12/29 -stop fluids -blood glucose labile but improved throughout the day after making insulin drip constant basal rate at 1.4 units/h, added NovoLog every 4 hours - discussed with pharmacy, change insulin drip to her insulin pump, will watch for 24 hours in the hospital to make sure she is stable -diet is improving slowly she remained stable for 24 hours on insulin pump using basal rate and bolus dosing for meal coverage she knows that she needs to take better control over her diabetes she does not check sugars as often as she should, does not give herself coverage with meals all the time, especially when she gets food with friends long talk with DM educator on the day of discharge, patient knows how to use the pump provided her with settings on pump and correction factor, carb ratio recommendations spoke with her mom over the phone, discussed plans for discharge, she agrees follow up with [facility] as well as endocrinology locally (patient is going to be living in [place] for next few years, wants to establish local endocrine care) - Infectious workup as below is negative. -Hemoglobin A1c severely uncontrolled at 14.6% patient admits that she does not bolus insulin with meals she does not keep close watch over her sugars she has appt with endocrinology on 01/21 here with [facility] Hypernatremia-likely secondary to fluids- resolved with 1/2 NSS Hypophosphatemia -Replaced with further IV potassium phosphate stable today Leukocytosis: - Pt with leukocytosis to 43 on admission and is now improved to normal; remains afebrile, SpO2 normal at this time, LP without signs of infection, UA negative for UTI, CXR without signs of pneumonia both on admission and again on 12/28 - Unlikely to be infectious, possibly due to dehydration and stress response. Did receive 1 dose of ceftriaxone on admission but was not continued - Lactate elevated on arrival to 2.7. -Continue to follow BCx x2, UCx, and CSF cultures -all NGTD -No need for antibiotics at this time Pleural effusions-trace bilateral, likely secondary to massive amounts of volume resuscitation and electrolyte replacement being given -With mild cough -Not hypoxic, no respiratory distress at all -Follow SOFI: - Likely 2/2 dehydration/prerenal in the setting of DKA. Spreader Box Operator now back to normal for over 48 hours - Fluids have been stopped Acute metabolic encephalopathy: was previously barely responsive and not conversive on admission, now encephalopathy resolved CT head negative LP performed without evidence of infection -Likely secondary to DKA -Continue treating DKA as above Abnormal TSH: -TSH is low could be secondary to acute illness -Recommend repeat thyroid function tests in 4 to 6 weeks when she is well - she will follow up with endocrinology on 01/21 Pulmonary stenosis: -Status post stenting of the pulmonary artery in childhood -Chest x-ray with mild prominence of the right hilum -Echocardiogram here is completely normal Code Status: FULL CODE DVT ppx: SCDs Dispo: remain in PCU status, plan to d/c home on 12/29 (2) Acute metabolic encephalopathy: (3) Metabolic acidosis: (4) Leukocytosis: (5) SOFI (acute kidney injury): (6) Abnormal TSH: (7) Pulmonary stenosis: (8) Hypophosphatemia: Total Time Total Time Spent Total Time Spent (In Minutes): 35 minutes Total Time Includes: Examination of the Patient, Discharge Planning, Medication Reconciliation, Communication With Other Providers (hospice educator) and Other (discussion over the phone with patient's mother) Discharge Plan Discharge Items Patient Disposition: Home - Self-Care Reason For Visit: DKA Discharge Diagnosis: Diabetic ketoacidosis Condition on Discharge: Good Goals: keep close watch over blood sugars it is very important that you count carbohydrates, give yourself bolus insulin with meals Activity: Resume your previous activity Non-emergency contact: Primary Care Provider and Specialist Call non-emergency contact if: you have any medication questions and your symptoms worsen Follow-up/Referrals: [facility] [Non-Staff] - 01/03/20 10:45 am (Please, follow up at [facility] with Dr. Nidhi Eaton on MondayJanuary 02 at 11:00 am (arrive 10:45 am). *If you need to change this appointment, call the clinic at [phone].) Darell Avilez PA-C [Physician Track Layer Head] - 01/22/20 3:00 pm (Please, follow up at [facility] Endocrinology Office with Darell Avilez PA-C on MondayJanuary 21 at 3:00 pm. *The office is located in [address] of [facility], next to this hospital. If you have any questions or need to change this appointment, call the office at [phone].) Diet: Carb Count or DM1 Addtl Attending Provider Instructions: Medications: no changes, see the insulin pump settings below Basal: 4093-2010 1.2 units/hr 5929-9831 1.1 units/hr 3567-8689 1 unit/hr 3206-2816 0.9 units/hr Total: 24.5 units Carb Coverage: 1:7 (2353-2739) 1:6 (1422-2438) 1:7 (5609-8653) Correctional Insulin: CF:50 (2600-7634) with BG target 120 CF:40 (2216-4190) with BG target 100 As we discussed and as was discussed by the hospice educator, it is vital that you cover your meals appropriately and use the glucose monitoring system. Your hemoglobin A1c is 14.6% suggesting that you are not giving yourself boluses of insulin as you should be Diabetic ketoacidosis can be life threatening. It is very, very important that you take the disease seriously, take control of your sugars. Follow up closely with [facility] this week on 01/02 and then follow up locally with endocrinology on 01/21 Pending Studies at Discharge: No Stand-Alone Forms: [facility] PiPsports, Smoking Cessation Medications and DC Order Prescriptions: Continued aspirin 81 mg Tablet,Delayed Release (Dr/Ec) 81 mg PO QAM RF: 0 insulin lispro [Humalog U-100 Insulin] 100 unit/mL solution 100 unit continuous subcutaneous infusion DAILY RF: 0 epinephrine 0.3 mg/0.3 mL auto-injector 0.3 mg subcut UD RF: 0 Discharge Orders: Discharge Order (Routine); Ordered 12/31/19 Ordered By: Familia Mcgee/Other Patient Handouts: Diabetes Healthy Meals, Diabetes Eating Out, Diabetes and Kidney Disease, Ketoacidosis Ch Admission Data Admit Date/Time: 12/26/19 15:40 Attending Provider: Familia Doshi Admit Provider: Suni Harmon Primary Care Provider: Nidhi Eaton Other Providers: Rosalba Jane ; Jeb Ward Other Interventions: Discharge Summary Assessment (RN) Last Done: 12/31/19 14:31 DC Date/Time DO NOT enter until pt leaves facility: 12/31/19 15:21 Coding Level of Care Code D/C Day Management >30 mins Diagnoses DKA (diabetic ketoacidoses) E10.10 Diabetes mellitus complication detail: without coma Diabetes mellitus type: type 1 Acute metabolic encephalopathy G93.41 Metabolic acidosis E87.2 Leukocytosis D72.823 Leukocytosis type: leukemoid reaction SOFI (acute kidney injury) N17.9 Abnormal TSH R79.89 Pulmonary stenosis I37.0 Hypophosphatemia E83.39
== END 2019-12-31 15:21 | disposition home or self-care (01) | DRG 919 ==
LOC: ED 12:52 → 1E 15:40 → SUATTDRO 15:40 → 1E 17:13 → 2S 12-30 14:44